=== PATIENT | female | born 1975 | race Caucasian/White ===

== ENCOUNTER 2020-11-06 12:28 | Inpatient (IN) | payer OTHER ==
[~2020-11-06] VITALS: Ht 167.6 cm; Wt 75.0 kg
[2020-11-06 12:50] LABS: BASOPHILS # (AUTO) 0.1 X10'3 (0-0.2); BASOPHILS % (AUTO) 0.8 % (0-1); EOSINOPHILS # (AUTO) 0.1 X10'3 (0-0.9); EOSINOPHILS % (AUTO) 1.1 % (0-6); HEMATOCRIT 42.6 % (35.0-45.0); HEMOGLOBIN 14.7 g/dl (12.0-16.0); LYMPHOCYTES # (AUTO) 1.2 X10'3 (1.1-4.8); LYMPHOCYTES % (AUTO) 18.2 % (21-51); MEAN CORPUSCULAR HEMOGLOBIN 28.2 PG (27.0-31.0); MEAN CORPUSCULAR HGB CONC 34.4 g/dL (33.0-36.5); MEAN CORPUSCULAR VOLUME 81.9 FL (78-98); MEAN PLATELET VOLUME 8.4 FL (7.4-10.4); MONOCYTES # (AUTO) 0.4 X10'3 (0-0.9); MONOCYTES % (AUTO) 5.7 % (2-12); NEUTROPHILS # (AUTO) 4.9 X10'3 (1.8-7.7); NEUTROPHILS % (AUTO) 74.2 % (42-75); PLATELET COUNT 226 X10'3 (140-440); RED CELL DISTRIBUTION WIDTH 13.8 % (11.5-14.5); WHITE BLOOD COUNT 6.7 X10'3 (4.5-11.0)
--- NOTE | 2020-11-06 12:56 | NUR ---
arrived to ER bed#4 for level 1 stroke alert, nihss and neuro assessment being done and already thinking possible tpa so getting box of tpa from [facility]. Addendum: 11/06/20 at 1708 by TERRIE Patient gave verbal consent for Teleneuro evaluation.
--- NOTE | 2020-11-06 13:00 | NUR ---
teleneuro in progress, stroke RN at bedside.
[2020-11-06 13:03] LABS: PARTIAL THROMBOPLASTIN TIME 25 SECONDS (22-32)
[2020-11-06 13:07] LABS: ALANINE AMINOTRANSFERASE 30 U/L (12-78); ALBUMIN 3.6 G/DL (3.4-5.0); ALBUMIN/GLOBULIN RATIO 0.9 (1.1-1.5); ALKALINE PHOSPHATASE 123 IU/L (46-116); ANION GAP 9 (8-16); ASPARTATE AMINO TRANSFERASE 15 U/L (10-37); BILIRUBIN,TOTAL 0.8 MG/DL (0.1-1.0); BLOOD UREA NITROGEN 13 MG/DL (7-18); CALCIUM 8.7 MG/DL (8.5-10.1); CHLORIDE 100 MMOL/L (99-107); CREATININE 0.62 MG/DL (0.40-0.90); GLUCOSE 385 MG/DL (70-104); POTASSIUM 3.7 MMOL/L (3.5-5.1); SODIUM 137 MMOL/L (135-145); TOTAL CARBON DIOXIDE 28.2 MMOL/L (24-32); TOTAL PROTEIN 7.5 G/DL (6.4-8.2); eGFR > 90 ML/MIN
[2020-11-06 13:09] LABS: TROPONIN I < 0.04 NG/ML (0.0-0.05)
[2020-11-06] MEDS ORDERED: alteplase 100MG inj. 100 ML IV ONE (13:10)
--- NOTE | 2020-11-06 13:10 | NUR ---
Bolus of TPA given, and ER nurse went to hang the tpa from the iv machine and the bottle slipped and broke. So we had to get new bottle of tpa mixed and hung that so there was a delay of infusion started but the bolus was given at 1310 and infusion started at 1320. Natalee WISE withnessed the waste and bous and infusion of the medicine.
[2020-11-06 14:41] LABS: CLARITY,URINE CLOUDY (Clear); COLOR,URINE YELLOW (Yellow); GLUCOSE, URINE >=1000 mg/dl (Neg); KETONES,URINE 15 mg/dl (Neg); LEUKOCYTE ESTERASE ,URINE SMALL (Neg); NITRITES, URINE NEGATIVE (Neg); OCCULT BLOOD,URINE TRACE-INTACT (Neg); PROTEIN,URINE NEGATIVE (Neg); UROBILINOGEN,URINE 0.2 E.U/dL (0.2-1.0)
[2020-11-06 14:51] LABS: UA COLLECTION TYPE VOIDED
[2020-11-06 14:52] LABS: SQUAMOUS EPITHELIAL CELL,UR MODERATE /LPF (FEW)
[2020-11-06] MEDS ORDERED: iohexol 350MG/ML 100ml bottle IV ONE (14:52)
[2020-11-06 14:53] LABS: BACTERIA,URINE 4+ /HPF (Neg); RBC,URINE 0-2 /HPF (0-2); WBC,URINE 50-100 /HPF (0-4)
[2020-11-06] MEDS ORDERED: NO HOME MEDS (15:04)
[2020-11-06] MEDS ORDERED: morphine 2 MG/ML inj. syringe IV PRN (15:30)
[2020-11-06] MEDS ORDERED: ondansetron/PF 4mg/2ml inj IV PRN (15:30)
[2020-11-06] MEDS ORDERED: acetaminophen 325mg tablet PO PRN (15:30)
[2020-11-06] MEDS ORDERED: magnesium hydroxide 30ml (MOM) UD suspension PO PRN (15:30)
[2020-11-06] MEDS ORDERED: morphine 4 MG/ML inj SYRINge IV PRN (15:30)
[2020-11-06] MEDS ORDERED: bisacodyl 10mg suppository rectal RC PRN (15:30)
[2020-11-06] MEDS: normal saline 1000ml 1,000 ML IV SCH (16:01)
--- NOTE | 2020-11-06 17:09 | NUR ---
Throughout my assessments her left facial droop has slightly improved and her tongue is not deviated, so I did another swallow eval and she passed that at 1600. I told the nurse not to feed her; but safe for swallowing water with nurse at bedside. 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 She continues to have issues focusing with her vision, she says this has been that way since the symptoms started today. Her left arm has gotten stronger and left leg stronger but she needs reinforcement to hold the arm and leg up or otherwise she will just say she can't do it. She also has justo horses frequently and has had episodes of this where she has to hold her legs to help the pain. So she is unable to wear the scd's due to justo horse pain to her lower egs.
--- NOTE | 2020-11-06 19:12 | NUR ---
PT ANXIOUS, C/O LEG CRAMPS, ANXIETY, VERBALLY COMFORTED.
--- NOTE | 2020-11-06 20:00 | NUR ---
PT SLEEPING, RR EVEN, NON-LABORED, NO CHANGE IN STROKE SYMPTOMS.
[2020-11-06] MEDS ORDERED: HYDR25TA4 PO (21:23)
[2020-11-06] MEDS ORDERED: GLYB5TAB7 PO (21:23)
[2020-11-06] MEDS ORDERED: ENAL10TA19 PO (21:23)
[2020-11-06] MEDS ORDERED: LANTUS SQ (21:25)
[2020-11-06 22:52] LABS: URINE AMPHETAMINE SCREEN POSITIVE (Neg); URINE BARBITUATE SCREEN NEGATIVE (Neg); URINE BENZODIAZEPINES SCREEN NEGATIVE (Neg); URINE CANNABINOID SCREEN NEGATIVE (Neg); URINE COCAINE SCREEN NEGATIVE (Neg); URINE METHADONE SCREEN NEGATIVE (Neg); URINE OPIATE SCREEN NEGATIVE (Neg); URINE PHENCYCLIDINE SCREEN NEGATIVE (Neg)
[2020-11-07 00:42] LABS: EOSINOPHILS # (AUTO) 0.1 X10'3 (0-0.9); MEAN CORPUSCULAR VOLUME 81.4 FL (78-98); MONOCYTES # (AUTO) 0.5 X10'3 (0-0.9)
[2020-11-07 00:44] LABS: BASOPHILS % (AUTO) 0.6 % (0-1); EOSINOPHILS % (AUTO) 1.3 % (0-6); HEMATOCRIT 42.3 % (35.0-45.0); HEMOGLOBIN 14.7 g/dl (12.0-16.0); LYMPHOCYTES # (AUTO) 1.9 X10'3 (1.1-4.8); LYMPHOCYTES % (AUTO) 23.2 % (21-51); MEAN CORPUSCULAR HEMOGLOBIN 28.3 PG (27.0-31.0); MEAN CORPUSCULAR HGB CONC 34.8 g/dL (33.0-36.5); MEAN PLATELET VOLUME 8.5 FL (7.4-10.4); MONOCYTES % (AUTO) 5.7 % (2-12); NEUTROPHILS # (AUTO) 5.7 X10'3 (1.8-7.7); NEUTROPHILS % (AUTO) 69.2 % (42-75); PLATELET COUNT 207 X10'3 (140-440); RED BLOOD COUNT 5.19 X10'6 (4.20-5.60); RED CELL DISTRIBUTION WIDTH 13.7 % (11.5-14.5); WHITE BLOOD COUNT 8.2 X10'3 (4.5-11.0)
[2020-11-07] MEDS ORDERED: diazepam inj 5 MG/ML inj. IV ONE ×2 (00:45→12:30)
[2020-11-07 00:53] LABS: ALANINE AMINOTRANSFERASE 30 U/L (12-78); ALBUMIN 3.2 G/DL (3.4-5.0); ALBUMIN/GLOBULIN RATIO 0.9 (1.1-1.5); ALKALINE PHOSPHATASE 96 IU/L (46-116); ANION GAP 9 (8-16); ASPARTATE AMINO TRANSFERASE 11 U/L (10-37); BILIRUBIN,TOTAL 0.8 MG/DL (0.1-1.0); BLOOD UREA NITROGEN 10 MG/DL (7-18); BUN/CREATININE RATIO 16.7 (6.6-38.0); CALCIUM 8.2 MG/DL (8.5-10.1); CHLORIDE 103 MMOL/L (99-107); GLUCOSE 279 MG/DL (70-104); MAGNESIUM 1.8 MG/DL (1.5-2.4); POTASSIUM 3.4 MMOL/L (3.5-5.1); SODIUM 141 MMOL/L (135-145); TOTAL PROTEIN 6.9 G/DL (6.4-8.2); eGFR > 90 ML/MIN
[2020-11-07 00:57] LABS: PARTIAL THROMBOPLASTIN TIME 21 SECONDS (22-32)
[2020-11-07] MEDS: normal saline 1000ml 1,000 ML IV SCH ×2 (05:41→20:56)
--- NOTE | 2020-11-07 10:07 | NUR ---
Dr Gould made aware of BP 168/103, BG 273, K 3.4, recommendation of speech therapy eval. No new orders at this time. Patient resting, at bedside, no signs of distress noted, patient repositioned to right side for comfort, will continue to monitor.
[2020-11-07] MEDS ORDERED: PERFLUTREN PROTEIN-A MICROSPHR (Optison) 0.22 MG/ML 3ML VIAL IV ONE (10:30)
[2020-11-07 12:49] LABS: HEMOGLOBIN A1C 9.8 % (4.5-6.2)
--- NOTE | 2020-11-07 12:50 | NUR ---
PAT TO MRI AT THIS TIME VIA [facility]. AT BEDSIDE.
[2020-11-07] MEDS ORDERED: MESSAGE TO PHARMACY PO ONE (14:30)
[2020-11-07] MEDS ORDERED: dextrose ORAL solution 15 GM/59 ML bottle PO PRN ×2 (14:30)
[2020-11-07] MEDS ORDERED: dextrose 50%-water 50ml dispensing syringe IV PRN ×2 (14:30)
[2020-11-07] MEDS ORDERED: glucagon, human recombinant 1mg kit SUBCUT PRN (14:30)
[2020-11-07] MEDS ORDERED: aspirin 81mg tab.chew PO ONE (14:40)
--- NOTE | 2020-11-07 16:03 | NUR ---
CALL TO DR BARRERA AT THIS TIME. PER MD NO ANTIBIOTIC INDICATED FOR UTI, POTASSIUM REPLACEMENT ORDERS ENTERED PER PROTOCOL.
[2020-11-07] MEDS ORDERED: potassium Cl 20 mEq SR tablet PO PRN (16:05)
[2020-11-07] MEDS ORDERED: potassium Cl 40MEQ/1/2NS 520ml 520 ML IV PRN ×2 (16:05)
[2020-11-07 16:15] VITALS: BP 160/102
--- NOTE | 2020-11-07 16:15 | NUR ---
RECEIVED REPORT FROM BILLIE JAMES IN ER. PT ARRIVED TO FLOOR AT 1615. PT IN ROOM 4022R
[2020-11-07 18:00] VITALS: BP 158/95
--- NOTE | 2020-11-07 18:40 | NUR ---
Problems reprioritized. Patient report given, questions answered & plan of care reviewed with BILLIE KINSEY.
[2020-11-07] MEDS: insulin Lispro (HumaLOG) vial - multi-dose SQ SCH ×2 (19:13→20:52)
[2020-11-07] MEDS: K and/or MAG REPLACEMENT MC SCH (20:00)
[2020-11-07] MEDS: insulin glargine (Lantus) pen - multi-dose SQ SCH (20:53)
[2020-11-07] MEDS: potassium Cl 20 mEq SR tablet PO PRN (21:06)
[2020-11-07 22:00] VITALS: BP 139/96
[2020-11-08] VITALS (7 sets, daily range): BP systolic 108–182; BP diastolic 77–101
[2020-11-08] MEDS: potassium Cl 20 mEq SR tablet PO PRN (01:31)
[2020-11-08 06:24] LABS: BASOPHILS % (AUTO) 0.6 % (0-1); EOSINOPHILS # (AUTO) 0.1 X10'3 (0-0.9); EOSINOPHILS % (AUTO) 0.7 % (0-6); HEMATOCRIT 41.5 % (35.0-45.0); HEMOGLOBIN 14.1 g/dl (12.0-16.0); LYMPHOCYTES % (AUTO) 12.4 % (21-51); MEAN CORPUSCULAR HEMOGLOBIN 27.9 PG (27.0-31.0); MEAN CORPUSCULAR HGB CONC 33.9 g/dL (33.0-36.5); MEAN CORPUSCULAR VOLUME 82.3 FL (78-98); MEAN PLATELET VOLUME 8.2 FL (7.4-10.4); MONOCYTES # (AUTO) 0.4 X10'3 (0-0.9); MONOCYTES % (AUTO) 5.5 % (2-12); NEUTROPHILS # (AUTO) 6.2 X10'3 (1.8-7.7); NEUTROPHILS % (AUTO) 80.8 % (42-75); PLATELET COUNT 198 X10'3 (140-440); RED BLOOD COUNT 5.04 X10'6 (4.20-5.60); RED CELL DISTRIBUTION WIDTH 13.7 % (11.5-14.5); WHITE BLOOD COUNT 7.7 X10'3 (4.5-11.0)
--- NOTE | 2020-11-08 06:46 | NUR ---
Patient in room ORTHO 4021. I have received report from MIAH WISE AND KINA WISE and had the opportunity to ask questions and assume patient care.
[2020-11-08 06:52] LABS: ALANINE AMINOTRANSFERASE 19 U/L (12-78); ALBUMIN 3.1 G/DL (3.4-5.0); ALBUMIN/GLOBULIN RATIO 0.9 (1.1-1.5); ALKALINE PHOSPHATASE 102 IU/L (46-116); ANION GAP 9 (8-16); ASPARTATE AMINO TRANSFERASE 11 U/L (10-37); BLOOD UREA NITROGEN 13 MG/DL (7-18); BUN/CREATININE RATIO 21.3 (6.6-38.0); CALCIUM 8.4 MG/DL (8.5-10.1); CHLORIDE 102 MMOL/L (99-107); CREATININE 0.61 MG/DL (0.40-0.90); GLUCOSE 262 MG/DL (70-104); HDL CHOLESTEROL 38 MG/DL (35-60); LDL CHOLESTEROL 96 MG/DL (50-100); MAGNESIUM 1.8 MG/DL (1.5-2.4); POTASSIUM 4.1 MMOL/L (3.5-5.1); SODIUM 139 MMOL/L (135-145); TOTAL CARBON DIOXIDE 27.8 MMOL/L (24-32); TOTAL PROTEIN 6.6 G/DL (6.4-8.2); eGFR > 90 ML/MIN
--- NOTE | 2020-11-08 06:52 | NUR ---
Patient in room ORTHO 4021. I have received report from BILLIE RODRIGUEZ and had the opportunity to ask questions and assume patient care.
[2020-11-08] MEDS: K and/or MAG REPLACEMENT MC SCH ×2 (07:07→19:11)
[2020-11-08] MEDS: normal saline 1000ml 1,000 ML IV SCH ×2 (07:07→11:49)
[2020-11-08] MEDS: aspirin 81mg tab.chew PO SCH (07:35)
[2020-11-08 07:43] LABS: CHOL/HDL RATIO 4.4 (0.00-4.99); CHOLESTEROL 169 MG/DL (0-200); TRIGLYCERIDES 143 MG/DL (20-135)
[2020-11-08] MEDS: insulin Lispro (HumaLOG) vial - multi-dose SQ SCH ×3 (09:28→19:22)
--- NOTE | 2020-11-08 11:54 | NUR ---
DM Consult: Pt admit DX R pontine stroke, L hemiparesis, double vision, and light sensitivity hx T2DM A1C 9.8 w/ no home meds listed per EMR. PT currently continues to have double vision out of one eye per RN w/ noted L arm weakness. Advanced to MM5/heart healthy diet per PANEL BEATER recs; MARTA d/w RN regarding carb controlled diet this admit given DM hx. Pt would benefit from written/verbal DM ed once more appropriate this admit. Addendum: 11/08/20 at [address] Amended: Links added.
--- NOTE | 2020-11-08 13:27 | NUR ---
Dr Miranda notified of LDL and order received for Atorvastin 40mg po daily.
[2020-11-08] MEDS ORDERED: magnesium hydroxide 30ml (MOM) UD suspension PO ONE (16:05)
--- NOTE | 2020-11-08 18:38 | NUR ---
Problems reprioritized. Patient report given, questions answered & plan of care reviewed with duke eid.
--- NOTE | 2020-11-08 18:45 | NUR ---
Patient in room ORTHO 4021. I have received report from Meri WISE and had the opportunity to ask questions and assume patient care.
[2020-11-08] MEDS: docusate sod 100mg capsule PO SCH (19:11)
[2020-11-08] MEDS: insulin glargine (Lantus) pen - multi-dose SQ SCH (21:35)
[2020-11-09 06:00] VITALS: BP 167/99
[2020-11-09 06:14] LABS: BASOPHILS % (AUTO) 0.7 % (0-1); EOSINOPHILS # (AUTO) 0.1 X10'3 (0-0.9); EOSINOPHILS % (AUTO) 1.2 % (0-6); HEMATOCRIT 39.5 % (35.0-45.0); HEMOGLOBIN 13.7 g/dl (12.0-16.0); LYMPHOCYTES # (AUTO) 1.3 X10'3 (1.1-4.8); LYMPHOCYTES % (AUTO) 19.8 % (21-51); MEAN CORPUSCULAR HEMOGLOBIN 28.3 PG (27.0-31.0); MEAN CORPUSCULAR HGB CONC 34.6 g/dL (33.0-36.5); MEAN PLATELET VOLUME 8.2 FL (7.4-10.4); MONOCYTES # (AUTO) 0.5 X10'3 (0-0.9); MONOCYTES % (AUTO) 7.5 % (2-12); NEUTROPHILS # (AUTO) 4.7 X10'3 (1.8-7.7); NEUTROPHILS % (AUTO) 70.8 % (42-75); PLATELET COUNT 190 X10'3 (140-440); RED BLOOD COUNT 4.82 X10'6 (4.20-5.60); RED CELL DISTRIBUTION WIDTH 13.5 % (11.5-14.5); WHITE BLOOD COUNT 6.6 X10'3 (4.5-11.0)
--- NOTE | 2020-11-09 06:28 | NUR ---
Problems reprioritized. Patient report given, questions answered & plan of care reviewed with Meri WISE.
[2020-11-09 06:32] LABS: ALANINE AMINOTRANSFERASE 21 U/L (12-78); ALBUMIN 2.8 G/DL (3.4-5.0); ALBUMIN/GLOBULIN RATIO 0.8 (1.1-1.5); ALKALINE PHOSPHATASE 92 IU/L (46-116); ANION GAP 7 (8-16); ASPARTATE AMINO TRANSFERASE 12 U/L (10-37); BILIRUBIN,TOTAL 0.9 MG/DL (0.1-1.0); BLOOD UREA NITROGEN 13 MG/DL (7-18); BUN/CREATININE RATIO 22.8 (6.6-38.0); CALCIUM 8.2 MG/DL (8.5-10.1); CHLORIDE 104 MMOL/L (99-107); CREATININE 0.57 MG/DL (0.40-0.90); GLUCOSE 246 MG/DL (70-104); MAGNESIUM 1.9 MG/DL (1.5-2.4); POTASSIUM 4.1 MMOL/L (3.5-5.1); SODIUM 138 MMOL/L (135-145); TOTAL CARBON DIOXIDE 27.2 MMOL/L (24-32); TOTAL PROTEIN 6.2 G/DL (6.4-8.2); eGFR > 90 ML/MIN
--- NOTE | 2020-11-09 06:32 | NUR ---
Patient in room ORTHO 4021. I have received report from duke eid and had the opportunity to ask questions and assume patient care.
[2020-11-09] MEDS: atorvastatin 20mg tablet PO SCH (07:03)
[2020-11-09] MEDS: docusate sod 100mg capsule PO SCH ×2 (07:03→20:00)
[2020-11-09] MEDS: K and/or MAG REPLACEMENT MC SCH ×2 (08:00→19:35)
[2020-11-09] MEDS ORDERED: atorvastatin 20mg tablet PO SCH (08:00)
[2020-11-09] MEDS: aspirin 81mg tab.chew PO SCH (08:07)
[2020-11-09] MEDS: insulin Lispro (HumaLOG) vial - multi-dose SQ SCH ×3 (09:06→19:09)
[2020-11-09 10:00] VITALS: BP 155/91
[2020-11-09] MEDS: normal saline 1000ml 1,000 ML IV SCH ×2 (10:10→23:30)
--- NOTE | 2020-11-09 14:11 | NUR ---
F/u 11/09: Pt seen by RD for written/verbal DM ed w/ RD contact information provided. Pt reports checks Glu routinely but when asked for results shares "high". Pt also reports not eating routinely skipping meals frequently recently. RD encouraged routine meal frequency each day to optimize Glu trends daily. RD encouraged pt to contact dietitian's office if further questions/concerns. Addendum: 11/09/20 at [address] Amended: Links added.
[2020-11-09 18:00] VITALS: BP 141/93
--- NOTE | 2020-11-09 18:39 | NUR ---
Problems reprioritized. Patient report given, questions answered & plan of care reviewed with Ronda WISE.
[2020-11-09] MEDS: insulin glargine (Lantus) pen - multi-dose SQ SCH (21:17)
[2020-11-09 22:00] VITALS: BP 143/92
[2020-11-09] MEDS: acetaminophen 325mg tablet PO PRN (22:03)
[2020-11-10 06:00] VITALS: BP 160/90
--- NOTE | 2020-11-10 06:24 | NUR ---
Problems reprioritized. Patient report given, questions answered & plan of care reviewed with BILLIE Jerez.
[2020-11-10 06:48] LABS: BASOPHILS % (AUTO) 0.5 % (0-1); EOSINOPHILS # (AUTO) 0.1 X10'3 (0-0.9); EOSINOPHILS % (AUTO) 1.6 % (0-6); HEMATOCRIT 36.9 % (35.0-45.0); HEMOGLOBIN 12.8 g/dl (12.0-16.0); LYMPHOCYTES # (AUTO) 1.5 X10'3 (1.1-4.8); LYMPHOCYTES % (AUTO) 19.5 % (21-51); MEAN CORPUSCULAR HEMOGLOBIN 28.2 PG (27.0-31.0); MEAN CORPUSCULAR HGB CONC 34.6 g/dL (33.0-36.5); MEAN CORPUSCULAR VOLUME 81.3 FL (78-98); MEAN PLATELET VOLUME 8.3 FL (7.4-10.4); MONOCYTES # (AUTO) 0.5 X10'3 (0-0.9); MONOCYTES % (AUTO) 6.4 % (2-12); NEUTROPHILS # (AUTO) 5.5 X10'3 (1.8-7.7); PLATELET COUNT 191 X10'3 (140-440); RED BLOOD COUNT 4.54 X10'6 (4.20-5.60); RED CELL DISTRIBUTION WIDTH 13.5 % (11.5-14.5); WHITE BLOOD COUNT 7.7 X10'3 (4.5-11.0)
[2020-11-10 07:05] LABS: ALANINE AMINOTRANSFERASE 20 U/L (12-78); ALBUMIN 2.7 G/DL (3.4-5.0); ALBUMIN/GLOBULIN RATIO 0.8 (1.1-1.5); ALKALINE PHOSPHATASE 105 IU/L (46-116); ANION GAP 4 (8-16); ASPARTATE AMINO TRANSFERASE 13 U/L (10-37); BILIRUBIN,TOTAL 0.5 MG/DL (0.1-1.0); BLOOD UREA NITROGEN 18 MG/DL (7-18); BUN/CREATININE RATIO 30.5 (6.6-38.0); CALCIUM 8.2 MG/DL (8.5-10.1); CHLORIDE 106 MMOL/L (99-107); CREATININE 0.59 MG/DL (0.40-0.90); GLUCOSE 255 MG/DL (70-104); MAGNESIUM 2.1 MG/DL (1.5-2.4); POTASSIUM 3.7 MMOL/L (3.5-5.1); SODIUM 140 MMOL/L (135-145); TOTAL CARBON DIOXIDE 29.9 MMOL/L (24-32); TOTAL PROTEIN 6.1 G/DL (6.4-8.2); eGFR > 90 ML/MIN
[2020-11-10] MEDS: docusate sod 100mg capsule PO SCH ×2 (07:31→20:00)
[2020-11-10] MEDS: K and/or MAG REPLACEMENT MC SCH ×2 (07:31→20:00)
[2020-11-10] MEDS: aspirin 81mg tab.chew PO SCH (07:31)
[2020-11-10] MEDS: atorvastatin 20mg tablet PO SCH (07:31)
[2020-11-10] MEDS: insulin Lispro (HumaLOG) vial - multi-dose SQ SCH ×4 (09:16→21:48)
[2020-11-10 10:00] VITALS: BP 130/78
--- NOTE | 2020-11-10 12:04 | NUR ---
Initial: Pt admit for acute CVA. Pt s/p f/u BSS 11/[address] recs texture upgrade to SB6 with thin liquids. Pt documented with 100% PO intake throughout LOS. Notified by dietary that pt receiving double protein TID as of 11/09. LBM 11/09 with routine bowel care available though pt documented to be refusing. No further nutrition intervention implemented at this time. Will continue to follow. Recommendations: 1) Continue SB6 CHO controlled diet with thin liquids per ST recs 2) Double eggs WB, double meat BIDLD for satiety 3) Routine bowel care 4) Scaled weight this admit; weekly scaled weights thereafter Addendum: 11/10/20 at [address] Amended: Links added.
[2020-11-10] MEDS: normal saline 1000ml 1,000 ML IV SCH (16:56)
[2020-11-10 17:34] LABS: CLARITY,URINE CLOUDY (Clear); COLOR,URINE YELLOW (Yellow); GLUCOSE, URINE 250 mg/dl (Neg); KETONES,URINE NEGATIVE (Neg); LEUKOCYTE ESTERASE ,URINE LARGE (Neg); NITRITES, URINE NEGATIVE (Neg); OCCULT BLOOD,URINE SMALL (Neg); PROTEIN,URINE NEGATIVE (Neg); UROBILINOGEN,URINE 0.2 E.U/dL (0.2-1.0)
[2020-11-10 17:40] LABS: UA COLLECTION TYPE NON-SPECIFIED
[2020-11-10 17:41] LABS: BACTERIA,URINE 4+ /HPF (Neg); MUCUS STRANDS NONE SEEN /LPF (Neg); RBC,URINE 0-2 /HPF (0-2); SQUAMOUS EPITHELIAL CELL,UR FEW /LPF (FEW); WBC,URINE 50-100 /HPF (0-4)
--- NOTE | 2020-11-10 17:49 | NUR ---
PAGER ID: [phone] MESSAGE: MICHAEL WISE [phone] RE: SARATH LOW [id number]. PTS U/A RESULTS ARE IN. THANK YOU
--- NOTE | 2020-11-10 18:31 | NUR ---
Problems reprioritized. Patient report given, questions answered & plan of care reviewed with KRYSTAL WISE.
[2020-11-10] MEDS: insulin glargine (Lantus) pen - multi-dose SQ SCH (21:44)
[2020-11-10] MEDS: nystatin 15 GM powder TP SCH (21:46)
[2020-11-10 22:00] VITALS: BP 150/86
[2020-11-11] MEDS: acetaminophen 325mg tablet PO PRN (02:45)
--- NOTE | 2020-11-11 04:27 | NUR ---
reviewed and edited assessment per my observations
[2020-11-11] MEDS: normal saline 1000ml 1,000 ML IV SCH ×2 (05:18→15:30)
[2020-11-11 05:54] LABS: BASOPHILS % (AUTO) 0.7 % (0-1); EOSINOPHILS # (AUTO) 0.1 X10'3 (0-0.9); EOSINOPHILS % (AUTO) 1.9 % (0-6); HEMATOCRIT 37.8 % (35.0-45.0); HEMOGLOBIN 12.6 g/dl (12.0-16.0); LYMPHOCYTES # (AUTO) 1.5 X10'3 (1.1-4.8); LYMPHOCYTES % (AUTO) 26.6 % (21-51); MEAN CORPUSCULAR HEMOGLOBIN 27.7 PG (27.0-31.0); MEAN CORPUSCULAR HGB CONC 33.4 g/dL (33.0-36.5); MEAN CORPUSCULAR VOLUME 83.1 FL (78-98); MEAN PLATELET VOLUME 8.2 FL (7.4-10.4); MONOCYTES # (AUTO) 0.3 X10'3 (0-0.9); MONOCYTES % (AUTO) 5.8 % (2-12); NEUTROPHILS # (AUTO) 3.7 X10'3 (1.8-7.7); PLATELET COUNT 205 X10'3 (140-440); RED BLOOD COUNT 4.55 X10'6 (4.20-5.60); RED CELL DISTRIBUTION WIDTH 13.9 % (11.5-14.5); WHITE BLOOD COUNT 5.7 X10'3 (4.5-11.0)
[2020-11-11 06:15] LABS: ALANINE AMINOTRANSFERASE 24 U/L (12-78); ALBUMIN 2.6 G/DL (3.4-5.0); ALBUMIN/GLOBULIN RATIO 0.8 (1.1-1.5); ALKALINE PHOSPHATASE 101 IU/L (46-116); ANION GAP 6 (8-16); ASPARTATE AMINO TRANSFERASE 16 U/L (10-37); BILIRUBIN,TOTAL 0.4 MG/DL (0.1-1.0); BLOOD UREA NITROGEN 21 MG/DL (7-18); BUN/CREATININE RATIO 38.9 (6.6-38.0); CALCIUM 8.1 MG/DL (8.5-10.1); CHLORIDE 108 MMOL/L (99-107); CREATININE 0.54 MG/DL (0.40-0.90); GLUCOSE 211 MG/DL (70-104); MAGNESIUM 1.9 MG/DL (1.5-2.4); POTASSIUM 4.1 MMOL/L (3.5-5.1); SODIUM 141 MMOL/L (135-145); TOTAL CARBON DIOXIDE 26.7 MMOL/L (24-32); TOTAL PROTEIN 5.9 G/DL (6.4-8.2); eGFR > 90 ML/MIN
[2020-11-11 06:30] VITALS: BP 153/96
[2020-11-11] MEDS: nystatin 15 GM powder TP SCH ×3 (08:00→21:00)
[2020-11-11] MEDS: docusate sod 100mg capsule PO SCH ×2 (08:00→20:00)
[2020-11-11] MEDS: K and/or MAG REPLACEMENT MC SCH ×2 (08:00→20:00)
[2020-11-11] MEDS: aspirin 81mg tab.chew PO SCH (09:09)
[2020-11-11] MEDS: atorvastatin 20mg tablet PO SCH (09:09)
[2020-11-11] MEDS: HYDROchlorothiazide 25mg tablet PO SCH (09:09)
[2020-11-11] MEDS: insulin Lispro (HumaLOG) vial - multi-dose SQ SCH ×4 (09:20→21:58)
[2020-11-11 10:00] VITALS: BP 134/82
[2020-11-11] MEDS: fluconazole 100mg tablet PO SCH (12:24)
[2020-11-11] MEDS: ciprofloxacin 250mg tablet PO SCH ×2 (12:24→22:04)
--- NOTE | 2020-11-11 13:42 | NUR ---
Nutrition Consult 11/11: Communicated w/ pt at bedside. Pt voiced food preferences; disliked some of the carbohydrate choices, RD provided pt w/ menu and alternative food write in list for [facility] diet. Will continue to monitor. Addendum: 11/11/20 at [address] Amended: Links added.
[2020-11-11] MEDS: HYDROcodone/acetaminophen 5mg/325mg tablet PO PRN (14:18)
[2020-11-11 18:00] VITALS: BP 144/80
--- NOTE | 2020-11-11 19:50 | NUR ---
Upon arriving on shift, spent about 45 with patient and her daughter listening to complaints about dayshift staff being abrupt and ignoring her needs. patient is very emotional and daughter willing to assist, since staffing is so busy. helped patient back into bed using stedy. provided daughter with shower cap and soapy water for bedbath. explained that if they would like to report problems, to speak to director of unit on .
[2020-11-11 22:00] VITALS: BP 139/95
[2020-11-11] MEDS: insulin glargine (Lantus) pen - multi-dose SQ SCH (22:00)
[2020-11-12] MEDS: acetaminophen 325mg tablet PO PRN (00:02)
[2020-11-12 02:00] VITALS: BP 152/89
[2020-11-12] MEDS: normal saline 1000ml 1,000 ML IV SCH (04:50)
--- NOTE | 2020-11-12 04:57 | NUR ---
reviewed and edited assessment.
[2020-11-12 06:09] LABS: BASOPHILS # (AUTO) 0.1 X10'3 (0-0.2); BASOPHILS % (AUTO) 0.9 % (0-1); EOSINOPHILS # (AUTO) 0.1 X10'3 (0-0.9); EOSINOPHILS % (AUTO) 2.3 % (0-6); HEMOGLOBIN 13.8 g/dl (12.0-16.0); LYMPHOCYTES % (AUTO) 31.5 % (21-51); MEAN CORPUSCULAR HGB CONC 33.6 g/dL (33.0-36.5); MEAN CORPUSCULAR VOLUME 83.2 FL (78-98); MEAN PLATELET VOLUME 8.5 FL (7.4-10.4); MONOCYTES # (AUTO) 0.4 X10'3 (0-0.9); MONOCYTES % (AUTO) 5.7 % (2-12); NEUTROPHILS # (AUTO) 3.7 X10'3 (1.8-7.7); NEUTROPHILS % (AUTO) 59.6 % (42-75); PLATELET COUNT 244 X10'3 (140-440); RED BLOOD COUNT 4.93 X10'6 (4.20-5.60); RED CELL DISTRIBUTION WIDTH 13.6 % (11.5-14.5); WHITE BLOOD COUNT 6.3 X10'3 (4.5-11.0)
[2020-11-12 06:21] LABS: ALANINE AMINOTRANSFERASE 24 U/L (12-78); ALBUMIN 3.1 G/DL (3.4-5.0); ALBUMIN/GLOBULIN RATIO 0.9 (1.1-1.5); ALKALINE PHOSPHATASE 113 IU/L (46-116); ANION GAP 4 (8-16); ASPARTATE AMINO TRANSFERASE 16 U/L (10-37); BILIRUBIN,TOTAL 0.3 MG/DL (0.1-1.0); BLOOD UREA NITROGEN 25 MG/DL (7-18); BUN/CREATININE RATIO 40.3 (6.6-38.0); CALCIUM 8.8 MG/DL (8.5-10.1); CHLORIDE 105 MMOL/L (99-107); CREATININE 0.62 MG/DL (0.40-0.90); GLUCOSE 219 MG/DL (70-104); POTASSIUM 4.1 MMOL/L (3.5-5.1); SODIUM 141 MMOL/L (135-145); TOTAL CARBON DIOXIDE 31.8 MMOL/L (24-32); TOTAL PROTEIN 6.6 G/DL (6.4-8.2); eGFR > 90 ML/MIN
--- NOTE | 2020-11-12 06:21 | NUR ---
Patient in room ORTHO 4021. I have received report from nando eid and had the opportunity to ask questions and assume patient care.
[2020-11-12 06:28] VITALS: BP 152/93
[2020-11-12] MEDS: nystatin 15 GM powder TP SCH ×3 (08:00→20:44)
[2020-11-12] MEDS: docusate sod 100mg capsule PO SCH ×2 (08:00→20:00)
[2020-11-12] MEDS: K and/or MAG REPLACEMENT MC SCH ×2 (08:00→20:00)
[2020-11-12] MEDS: aspirin 81mg tab.chew PO SCH (08:55)
[2020-11-12] MEDS: atorvastatin 20mg tablet PO SCH (08:55)
[2020-11-12] MEDS: ciprofloxacin 250mg tablet PO SCH ×2 (08:56→22:33)
[2020-11-12] MEDS: HYDROchlorothiazide 25mg tablet PO SCH (08:56)
[2020-11-12] MEDS: fluconazole 100mg tablet PO SCH (08:57)
[2020-11-12 10:00] VITALS: BP 141/90
[2020-11-12] MEDS: insulin Lispro (HumaLOG) vial - multi-dose SQ SCH ×2 (10:06→20:41)
[2020-11-12] MEDS: HYDROcodone/acetaminophen 5mg/325mg tablet PO PRN (12:19)
--- NOTE | 2020-11-12 13:23 | NUR ---
Nutrition Consult 11/12: Consult already addressed, see pervious RD note. Addendum: 11/12/20 at [address] Amended: Links added.
[2020-11-12 18:00] VITALS: BP 131/80
--- NOTE | 2020-11-12 18:16 | NUR ---
Problems reprioritized. Patient report given, questions answered & plan of care reviewed with haris eid.
[2020-11-12] MEDS: lactobacillus rhamnosus 10,000 MMU CELLS/CAPSULE PO SCH (20:41)
--- NOTE | 2020-11-12 20:45 | NUR ---
PATIENT REFUSED NYSTOP POWDER-DOES NOT EVEN KNOW WHAT IT IS FOR. ALSO, OPENED COLACE, BUT PT REFUSED MED SO HAD TO THROW AWAY INSTEAD OF RETURN.
[2020-11-12] MEDS ORDERED: Melatonin 3mg tablet PO SCH ×2 (21:20→23:40)
[2020-11-12] MEDS: insulin glargine (Lantus) pen - multi-dose SQ SCH (22:32)
[2020-11-13 01:00] VITALS: BP 142/90
[2020-11-13] MEDS: acetaminophen 325mg tablet PO PRN (02:05)
--- NOTE | 2020-11-13 06:25 | NUR ---
Patient in room ORTHO 4021. I have received report from Mitchell WISE and had the opportunity to ask questions and assume patient care.
[2020-11-13 07:17] LABS: BASOPHILS # (AUTO) 0.1 X10'3 (0-0.2); BASOPHILS % (AUTO) 0.9 % (0-1); EOSINOPHILS # (AUTO) 0.1 X10'3 (0-0.9); EOSINOPHILS % (AUTO) 1.8 % (0-6); HEMATOCRIT 39.5 % (35.0-45.0); HEMOGLOBIN 13.5 g/dl (12.0-16.0); LYMPHOCYTES # (AUTO) 1.8 X10'3 (1.1-4.8); LYMPHOCYTES % (AUTO) 23.7 % (21-51); MEAN CORPUSCULAR HEMOGLOBIN 28.2 PG (27.0-31.0); MEAN CORPUSCULAR HGB CONC 34.2 g/dL (33.0-36.5); MEAN CORPUSCULAR VOLUME 82.7 FL (78-98); MEAN PLATELET VOLUME 8.4 FL (7.4-10.4); MONOCYTES # (AUTO) 0.4 X10'3 (0-0.9); MONOCYTES % (AUTO) 5.9 % (2-12); NEUTROPHILS % (AUTO) 67.7 % (42-75); PLATELET COUNT 246 X10'3 (140-440); RED BLOOD COUNT 4.78 X10'6 (4.20-5.60); RED CELL DISTRIBUTION WIDTH 13.9 % (11.5-14.5); WHITE BLOOD COUNT 7.5 X10'3 (4.5-11.0)
[2020-11-13 07:34] LABS: ALANINE AMINOTRANSFERASE 30 U/L (12-78); ALBUMIN 3.2 G/DL (3.4-5.0); ALBUMIN/GLOBULIN RATIO 0.9 (1.1-1.5); ALKALINE PHOSPHATASE 111 IU/L (46-116); ANION GAP 7 (8-16); ASPARTATE AMINO TRANSFERASE 18 U/L (10-37); BILIRUBIN,TOTAL 0.4 MG/DL (0.1-1.0); BLOOD UREA NITROGEN 31 MG/DL (7-18); BUN/CREATININE RATIO 44.3 (6.6-38.0); CALCIUM 8.8 MG/DL (8.5-10.1); CHLORIDE 104 MMOL/L (99-107); GLUCOSE 244 MG/DL (70-104); MAGNESIUM 1.8 MG/DL (1.5-2.4); SODIUM 138 MMOL/L (135-145); TOTAL CARBON DIOXIDE 27.3 MMOL/L (24-32); TOTAL PROTEIN 6.8 G/DL (6.4-8.2); eGFR 90 ML/MIN
[2020-11-13] MEDS: K and/or MAG REPLACEMENT MC SCH ×2 (08:00→20:00)
[2020-11-13] MEDS: nystatin 15 GM powder TP SCH ×3 (08:00→20:48)
[2020-11-13] MEDS: HYDROchlorothiazide 25mg tablet PO SCH (08:12)
[2020-11-13] MEDS: aspirin 81mg tab.chew PO SCH (08:12)
[2020-11-13] MEDS: fluconazole 100mg tablet PO SCH (08:12)
[2020-11-13] MEDS: docusate sod 100mg capsule PO SCH ×2 (08:12→20:00)
[2020-11-13] MEDS: atorvastatin 20mg tablet PO SCH (08:12)
[2020-11-13] MEDS: lactobacillus rhamnosus 10,000 MMU CELLS/CAPSULE PO SCH ×2 (08:13→20:00)
[2020-11-13 10:00] VITALS: BP 148/90
[2020-11-13] MEDS: ciprofloxacin 250mg tablet PO SCH ×2 (10:18→21:23)
--- NOTE | 2020-11-13 10:43 | NUR ---
PAGER ID: [phone] MESSAGE: Ortho/Neuro Chantell WISE ext [phone]. RE: Alicia Melo. Patient stated feeling depressed, asking for antidepressant medication
[2020-11-13] MEDS: FLUoxetine 20mg capsule PO SCH (11:06)
[2020-11-13] MEDS: insulin Lispro (HumaLOG) vial - multi-dose SQ SCH ×2 (12:37→21:15)
[2020-11-13 18:00] VITALS: BP 163/101
--- NOTE | 2020-11-13 18:46 | NUR ---
Patient in room MICHAELA 345. I have received report from BILLIE Abdul and had the opportunity to ask questions and assume patient care.
[2020-11-13] MEDS ORDERED: Melatonin 3mg tablet PO SCH (21:00)
[2020-11-13] MEDS: insulin glargine (Lantus) pen - multi-dose SQ SCH (21:16)
[2020-11-13] MEDS ORDERED: levoFLOXACIN 500mg tablet PO ONE (21:25)
[2020-11-14] VITALS: BP 144/100
--- NOTE | 2020-11-14 00:36 | NUR ---
Patient's antibiotic changed right after it was given from Cipro to Levaquin. Checked the eMAR and saw that new med Levaquin had been added. Went to give medication to patient and found out she had just eaten dairy and the med is supposed to be held for 4 hours after dairy is eaten. Called pharmacy and was told that we should probably just wait until the next scheduled dose since both antibiotics are Fluoroquinolones and due to the dairy, but to check with the Dr first. Paged Dr. Noble.
[2020-11-14] MEDS: HYDROcodone/acetaminophen 5mg/325mg tablet PO PRN ×3 (03:44→22:30)
[2020-11-14 06:07] LABS: BASOPHILS # (AUTO) 0.1 X10'3 (0-0.2); BASOPHILS % (AUTO) 0.8 % (0-1); EOSINOPHILS # (AUTO) 0.1 X10'3 (0-0.9); EOSINOPHILS % (AUTO) 1.4 % (0-6); HEMATOCRIT 41.6 % (35.0-45.0); LYMPHOCYTES # (AUTO) 1.8 X10'3 (1.1-4.8); LYMPHOCYTES % (AUTO) 24.2 % (21-51); MEAN CORPUSCULAR HEMOGLOBIN 28.2 PG (27.0-31.0); MEAN CORPUSCULAR HGB CONC 33.6 g/dL (33.0-36.5); MEAN PLATELET VOLUME 8.6 FL (7.4-10.4); MONOCYTES # (AUTO) 0.5 X10'3 (0-0.9); MONOCYTES % (AUTO) 6.7 % (2-12); NEUTROPHILS # (AUTO) 4.9 X10'3 (1.8-7.7); NEUTROPHILS % (AUTO) 66.9 % (42-75); PLATELET COUNT 272 X10'3 (140-440); RED BLOOD COUNT 4.95 X10'6 (4.20-5.60); WHITE BLOOD COUNT 7.3 X10'3 (4.5-11.0)
[2020-11-14 06:27] LABS: ALANINE AMINOTRANSFERASE 37 U/L (12-78); ALBUMIN 3.5 G/DL (3.4-5.0); ALBUMIN/GLOBULIN RATIO 0.9 (1.1-1.5); ALKALINE PHOSPHATASE 132 IU/L (46-116); ANION GAP 8 (8-16); ASPARTATE AMINO TRANSFERASE 19 U/L (10-37); BILIRUBIN,TOTAL 0.4 MG/DL (0.1-1.0); BLOOD UREA NITROGEN 29 MG/DL (7-18); CALCIUM 8.7 MG/DL (8.5-10.1); CHLORIDE 101 MMOL/L (99-107); CREATININE 0.63 MG/DL (0.40-0.90); GLUCOSE 327 MG/DL (70-104); POTASSIUM 3.9 MMOL/L (3.5-5.1); SODIUM 140 MMOL/L (135-145); TOTAL CARBON DIOXIDE 31.1 MMOL/L (24-32); TOTAL PROTEIN 7.2 G/DL (6.4-8.2); eGFR > 90 ML/MIN
--- NOTE | 2020-11-14 06:30 | NUR ---
Problems reprioritized. Patient report given, questions answered & plan of care reviewed with BILLIE Dang.
--- NOTE | 2020-11-14 06:30 | NUR ---
Patient in room MICHAELA 345. I have received report from BILLIE Stanley and had the opportunity to ask questions and assume patient care.
[2020-11-14 07:00] VITALS: BP 155/91
[2020-11-14] MEDS: nystatin 15 GM powder TP SCH ×2 (08:00→12:41)
[2020-11-14] MEDS: docusate sod 100mg capsule PO SCH ×2 (08:00→20:00)
[2020-11-14] MEDS: K and/or MAG REPLACEMENT MC SCH ×2 (08:00→20:37)
[2020-11-14] MEDS: insulin Lispro (HumaLOG) vial - multi-dose SQ SCH ×4 (08:45→22:21)
[2020-11-14] MEDS: FLUoxetine 20mg capsule PO SCH (08:47)
[2020-11-14] MEDS: atorvastatin 20mg tablet PO SCH (08:47)
[2020-11-14] MEDS: aspirin 81mg tab.chew PO SCH (08:47)
[2020-11-14] MEDS: lactobacillus rhamnosus 10,000 MMU CELLS/CAPSULE PO SCH ×2 (08:47→20:00)
[2020-11-14] MEDS: HYDROchlorothiazide 25mg tablet PO SCH (08:47)
[2020-11-14] MEDS: fluconazole 100mg tablet PO SCH (08:48)
[2020-11-14 11:00] VITALS: BP 127/87
[2020-11-14] MEDS: levoFLOXACIN 500mg tablet PO SCH (11:10)
--- NOTE | 2020-11-14 12:58 | NUR ---
PAGER ID: [phone] MESSAGE: Laurence Case [phone] re Melo [phone] please call regarding pt receiving 2nd shot of Pfizer Covid vaccine, thank you Addendum: 11/14/20 at 1301 by Laurence Yung RN orders received to administer 2nd dose of vaccine
[2020-11-14 18:00] VITALS: BP 142/85
--- NOTE | 2020-11-14 18:40 | NUR ---
Patient in room MICHAELA 345. I have received report from BILLIE Dang and had the opportunity to ask questions and assume patient care.
--- NOTE | 2020-11-14 18:42 | NUR ---
Problems reprioritized. Patient report given, questions answered & plan of care reviewed with BILLIE Menon.
[2020-11-14 19:00] VITALS: BP 137/86
[2020-11-14] MEDS: insulin glargine (Lantus) pen - multi-dose SQ SCH (22:19)
--- NOTE | 2020-11-14 23:12 | NUR ---
Student documentation: I have reviewed and agree with all interventions, assessments performed and documented by Junior White [facility].
--- NOTE | 2020-11-14 23:13 | NUR ---
Student Medication Administration: For this medication-pass time frame, all medication were reviewed, dispensed, administered and documented per hospital policy by Mark White [facility]. All double check done..
[2020-11-15] VITALS: BP 144/89
[2020-11-15 06:17] LABS: BASOPHILS # (AUTO) 0.1 X10'3 (0-0.2); EOSINOPHILS # (AUTO) 0.1 X10'3 (0-0.9); EOSINOPHILS % (AUTO) 1.9 % (0-6); HEMATOCRIT 40.7 % (35.0-45.0); HEMOGLOBIN 13.8 g/dl (12.0-16.0); LYMPHOCYTES % (AUTO) 30.2 % (21-51); MEAN CORPUSCULAR HEMOGLOBIN 28.4 PG (27.0-31.0); MEAN CORPUSCULAR VOLUME 83.6 FL (78-98); MEAN PLATELET VOLUME 8.8 FL (7.4-10.4); MONOCYTES # (AUTO) 0.5 X10'3 (0-0.9); MONOCYTES % (AUTO) 6.9 % (2-12); PLATELET COUNT 256 X10'3 (140-440); RED BLOOD COUNT 4.87 X10'6 (4.20-5.60); RED CELL DISTRIBUTION WIDTH 14.1 % (11.5-14.5); WHITE BLOOD COUNT 6.6 X10'3 (4.5-11.0)
--- NOTE | 2020-11-15 06:26 | NUR ---
Patient in room MICHAELA 345. I have received report from BILLIE Menon and had the opportunity to ask questions and assume patient care.
[2020-11-15 06:36] LABS: ALANINE AMINOTRANSFERASE 33 U/L (12-78); ALBUMIN 3.3 G/DL (3.4-5.0); ALKALINE PHOSPHATASE 134 IU/L (46-116); ANION GAP 5 (8-16); ASPARTATE AMINO TRANSFERASE 17 U/L (10-37); BILIRUBIN,TOTAL 0.3 MG/DL (0.1-1.0); BLOOD UREA NITROGEN 25 MG/DL (7-18); BUN/CREATININE RATIO 37.9 (6.6-38.0); CALCIUM 8.8 MG/DL (8.5-10.1); CHLORIDE 103 MMOL/L (99-107); CREATININE 0.66 MG/DL (0.40-0.90); GLUCOSE 290 MG/DL (70-104); MAGNESIUM 2.1 MG/DL (1.5-2.4); POTASSIUM 4.2 MMOL/L (3.5-5.1); SODIUM 142 MMOL/L (135-145); TOTAL CARBON DIOXIDE 33.9 MMOL/L (24-32); TOTAL PROTEIN 6.7 G/DL (6.4-8.2); eGFR > 90 ML/MIN
--- NOTE | 2020-11-15 06:39 | NUR ---
Problems reprioritized. Patient report given, questions answered & plan of care reviewed with BILLIE Dang.
[2020-11-15 07:00] VITALS: BP 170/93
[2020-11-15] MEDS: docusate sod 100mg capsule PO SCH ×3 (08:00→19:16)
[2020-11-15] MEDS: K and/or MAG REPLACEMENT MC SCH ×2 (08:00→19:17)
[2020-11-15] MEDS: insulin Lispro (HumaLOG) vial - multi-dose SQ SCH ×5 (08:48→22:52)
[2020-11-15] MEDS: lactobacillus rhamnosus 10,000 MMU CELLS/CAPSULE PO SCH ×2 (08:50→19:02)
[2020-11-15] MEDS: HYDROchlorothiazide 25mg tablet PO SCH (08:50)
[2020-11-15] MEDS: aspirin 81mg tab.chew PO SCH (08:50)
[2020-11-15] MEDS: fluconazole 100mg tablet PO SCH (08:50)
[2020-11-15] MEDS: atorvastatin 20mg tablet PO SCH (08:50)
[2020-11-15] MEDS: FLUoxetine 20mg capsule PO SCH (08:50)
[2020-11-15] MEDS ORDERED: COVID-19 VACC, MRNA(PFIZER)/PF--BNT162b2 syringe IMVAC ONE (10:30)
[2020-11-15 12:10] VITALS: BP 142/90
[2020-11-15] MEDS: levoFLOXACIN 500mg tablet PO SCH (13:17)
[2020-11-15] MEDS: acetaminophen 325mg tablet PO PRN (17:13)
[2020-11-15 18:00] VITALS: BP 150/90
--- NOTE | 2020-11-15 18:25 | NUR ---
Patient in room MICHAELA 345. I have received report from BILLIE Dang and had the opportunity to ask questions and assume patient care.
--- NOTE | 2020-11-15 18:28 | NUR ---
Problems reprioritized. Patient report given, questions answered & plan of care reviewed with BILLIE Menon.
[2020-11-15] MEDS: insulin glargine (Lantus) pen - multi-dose SQ SCH (22:51)
[2020-11-16] VITALS: BP 140/80
[2020-11-16] MEDS: HYDROcodone/acetaminophen 5mg/325mg tablet PO PRN ×4 (00:24→23:03)
[2020-11-16 05:58] LABS: BASOPHILS # (AUTO) 0.1 X10'3 (0-0.2); BASOPHILS % (AUTO) 0.7 % (0-1); EOSINOPHILS # (AUTO) 0.1 X10'3 (0-0.9); EOSINOPHILS % (AUTO) 1.5 % (0-6); HEMATOCRIT 40.4 % (35.0-45.0); HEMOGLOBIN 13.9 g/dl (12.0-16.0); LYMPHOCYTES # (AUTO) 1.8 X10'3 (1.1-4.8); LYMPHOCYTES % (AUTO) 26.2 % (21-51); MEAN CORPUSCULAR HEMOGLOBIN 28.1 PG (27.0-31.0); MEAN CORPUSCULAR HGB CONC 34.4 g/dL (33.0-36.5); MEAN CORPUSCULAR VOLUME 81.6 FL (78-98); MEAN PLATELET VOLUME 8.6 FL (7.4-10.4); MONOCYTES # (AUTO) 0.4 X10'3 (0-0.9); MONOCYTES % (AUTO) 5.2 % (2-12); NEUTROPHILS # (AUTO) 4.5 X10'3 (1.8-7.7); NEUTROPHILS % (AUTO) 66.4 % (42-75); PLATELET COUNT 262 X10'3 (140-440); RED BLOOD COUNT 4.95 X10'6 (4.20-5.60); RED CELL DISTRIBUTION WIDTH 13.6 % (11.5-14.5); WHITE BLOOD COUNT 6.8 X10'3 (4.5-11.0)
[2020-11-16 06:20] LABS: ALANINE AMINOTRANSFERASE 30 U/L (12-78); ALBUMIN 3.4 G/DL (3.4-5.0); ALKALINE PHOSPHATASE 116 IU/L (46-116); ANION GAP 2 (8-16); ASPARTATE AMINO TRANSFERASE 21 U/L (10-37); BILIRUBIN,TOTAL 0.4 MG/DL (0.1-1.0); BLOOD UREA NITROGEN 24 MG/DL (7-18); BUN/CREATININE RATIO 38.7 (6.6-38.0); CALCIUM 8.9 MG/DL (8.5-10.1); CHLORIDE 102 MMOL/L (99-107); CREATININE 0.62 MG/DL (0.40-0.90); GLUCOSE 280 MG/DL (70-104); MAGNESIUM 2.1 MG/DL (1.5-2.4); POTASSIUM 3.7 MMOL/L (3.5-5.1); SODIUM 137 MMOL/L (135-145); TOTAL PROTEIN 6.9 G/DL (6.4-8.2); eGFR > 90 ML/MIN
--- NOTE | 2020-11-16 06:41 | NUR ---
Problems reprioritized. Patient report given, questions answered & plan of care reviewed with BILLIE Felix.
[2020-11-16 07:00] VITALS: BP 146/97
[2020-11-16] MEDS: fluconazole 100mg tablet PO SCH (07:33)
[2020-11-16] MEDS: K and/or MAG REPLACEMENT MC SCH ×2 (07:33→20:00)
[2020-11-16] MEDS: FLUoxetine 20mg capsule PO SCH (07:33)
[2020-11-16] MEDS: aspirin 81mg tab.chew PO SCH (07:33)
[2020-11-16] MEDS: atorvastatin 20mg tablet PO SCH (07:33)
[2020-11-16] MEDS: HYDROchlorothiazide 25mg tablet PO SCH (07:34)
[2020-11-16] MEDS: docusate sod 100mg capsule PO SCH ×2 (07:43→20:00)
[2020-11-16] MEDS: lactobacillus rhamnosus 10,000 MMU CELLS/CAPSULE PO SCH ×2 (07:43→20:31)
[2020-11-16] MEDS: insulin Lispro (HumaLOG) vial - multi-dose SQ SCH ×2 (09:05→14:44)
[2020-11-16 11:00] VITALS: BP 153/91
[2020-11-16] MEDS: levoFLOXACIN 500mg tablet PO SCH (11:55)
--- NOTE | 2020-11-16 13:45 | NUR ---
Reassessment: Pt s/p f/u BSS today with ST recs to continue SB6 diet with thin liquids. Patient's PO intake slightly fluctuates however averages 75-100% with mostly 100% PO intake. Pt meeting estimated nutrient needs at this time and continues receiving double protein TID. LBM 11/16. No further nutrition intervention implemented at this time. Will continue to follow. Recommendations: 1) Continue SB6 CHO controlled diet with thin liquids per ST recs 2) Double eggs WB, double meat BIDLD for satiety per diet order 3) Routine bowel care 4) Scaled weights per rx Addendum: 11/16/20 at [address] Amended: Links added.
--- NOTE | 2020-11-16 18:15 | NUR ---
Problems reprioritized. Patient report given, questions answered & plan of care reviewed with BILLIE Rogers.
--- NOTE | 2020-11-16 18:30 | NUR ---
Patient in room MICHAELA 345. I have received report from FISH WISE and had the opportunity to ask questions and assume patient care.
[2020-11-16 20:00] VITALS: BP 139/94
[2020-11-16] MEDS: insulin glargine (Lantus) pen - multi-dose SQ SCH (20:48)
[2020-11-17] VITALS: BP 146/90
[2020-11-17 06:07] LABS: BASOPHILS # (AUTO) 0.1 X10'3 (0-0.2); BASOPHILS % (AUTO) 0.8 % (0-1); EOSINOPHILS # (AUTO) 0.1 X10'3 (0-0.9); EOSINOPHILS % (AUTO) 1.1 % (0-6); HEMATOCRIT 40.9 % (35.0-45.0); HEMOGLOBIN 13.8 g/dl (12.0-16.0); LYMPHOCYTES # (AUTO) 1.8 X10'3 (1.1-4.8); LYMPHOCYTES % (AUTO) 21.8 % (21-51); MEAN CORPUSCULAR HEMOGLOBIN 28.2 PG (27.0-31.0); MEAN CORPUSCULAR HGB CONC 33.6 g/dL (33.0-36.5); MEAN CORPUSCULAR VOLUME 83.8 FL (78-98); MEAN PLATELET VOLUME 8.5 FL (7.4-10.4); MONOCYTES # (AUTO) 0.6 X10'3 (0-0.9); NEUTROPHILS # (AUTO) 5.8 X10'3 (1.8-7.7); NEUTROPHILS % (AUTO) 69.3 % (42-75); PLATELET COUNT 280 X10'3 (140-440); RED BLOOD COUNT 4.88 X10'6 (4.20-5.60); RED CELL DISTRIBUTION WIDTH 13.8 % (11.5-14.5); WHITE BLOOD COUNT 8.4 X10'3 (4.5-11.0)
[2020-11-17 06:17] LABS: ALANINE AMINOTRANSFERASE 35 U/L (12-78); ALBUMIN 3.3 G/DL (3.4-5.0); ALBUMIN/GLOBULIN RATIO 0.9 (1.1-1.5); ALKALINE PHOSPHATASE 133 IU/L (46-116); ANION GAP 5 (8-16); ASPARTATE AMINO TRANSFERASE 16 U/L (10-37); BILIRUBIN,TOTAL 0.4 MG/DL (0.1-1.0); BLOOD UREA NITROGEN 30 MG/DL (7-18); BUN/CREATININE RATIO 44.8 (6.6-38.0); CALCIUM 8.6 MG/DL (8.5-10.1); CHLORIDE 101 MMOL/L (99-107); CREATININE 0.67 MG/DL (0.40-0.90); GLUCOSE 291 MG/DL (70-104); MAGNESIUM 1.8 MG/DL (1.5-2.4); POTASSIUM 4.2 MMOL/L (3.5-5.1); SODIUM 139 MMOL/L (135-145); TOTAL CARBON DIOXIDE 32.7 MMOL/L (24-32); eGFR > 90 ML/MIN
--- NOTE | 2020-11-17 06:30 | NUR ---
Problems reprioritized. Patient report given, questions answered & plan of care reviewed with FISH WISE.
[2020-11-17 07:00] VITALS: BP 140/88
[2020-11-17] MEDS: K and/or MAG REPLACEMENT MC SCH ×2 (08:00→20:00)
[2020-11-17] MEDS: docusate sod 100mg capsule PO SCH ×2 (08:00→20:00)
[2020-11-17] MEDS: lactobacillus rhamnosus 10,000 MMU CELLS/CAPSULE PO SCH ×2 (08:00→19:58)
[2020-11-17] MEDS: FLUoxetine 20mg capsule PO SCH (08:31)
[2020-11-17] MEDS: HYDROchlorothiazide 25mg tablet PO SCH (08:31)
[2020-11-17] MEDS: fluconazole 100mg tablet PO SCH (08:31)
[2020-11-17] MEDS: aspirin 81mg tab.chew PO SCH (08:31)
[2020-11-17] MEDS: atorvastatin 20mg tablet PO SCH (08:31)
[2020-11-17] MEDS: insulin Lispro (HumaLOG) vial - multi-dose SQ SCH ×3 (09:57→20:03)
[2020-11-17] MEDS: levoFLOXACIN 500mg tablet PO SCH (11:49)
[2020-11-17 12:19] VITALS: BP 146/89
--- NOTE | 2020-11-17 18:05 | NUR ---
Problems reprioritized. Patient report given, questions answered & plan of care reviewed with BILLIE Galeano.
--- NOTE | 2020-11-17 18:10 | NUR ---
Patient in room MICHAELA 345. I have received report from BILLIE Luna and had the opportunity to ask questions and assume patient care.
[2020-11-17 18:30] VITALS: BP 134/85
[2020-11-17] MEDS: HYDROcodone/acetaminophen 5mg/325mg tablet PO PRN (22:18)
[2020-11-17] MEDS: insulin glargine (Lantus) pen - multi-dose SQ SCH (22:32)
[2020-11-17 23:00] VITALS: BP 138/89
[2020-11-18] MEDS: HYDROcodone/acetaminophen 5mg/325mg tablet PO PRN ×3 (05:40→22:16)
--- NOTE | 2020-11-18 06:05 | NUR ---
Problems reprioritized. Patient report given, questions answered & plan of care reviewed with BILLIE Perez.
[2020-11-18 07:00] VITALS: BP 157/86
[2020-11-18] MEDS: K and/or MAG REPLACEMENT MC SCH ×2 (08:00→20:00)
[2020-11-18] MEDS: docusate sod 100mg capsule PO SCH ×2 (08:00→20:00)
[2020-11-18] MEDS: atorvastatin 20mg tablet PO SCH (08:54)
[2020-11-18] MEDS: aspirin 81mg tab.chew PO SCH (08:54)
[2020-11-18] MEDS: lactobacillus rhamnosus 10,000 MMU CELLS/CAPSULE PO SCH ×2 (08:54→19:08)
[2020-11-18] MEDS: FLUoxetine 20mg capsule PO SCH (08:55)
[2020-11-18] MEDS: HYDROchlorothiazide 25mg tablet PO SCH (08:55)
[2020-11-18] MEDS: insulin Lispro (HumaLOG) vial - multi-dose SQ SCH ×4 (09:54→22:23)
[2020-11-18] MEDS: fluconazole 100mg tablet PO SCH (10:22)
[2020-11-18 11:00] VITALS: BP 129/82
--- NOTE | 2020-11-18 14:22 | NUR ---
Pt's Levaquin dose was delayed due to having just eaten dairy. Went to give dose however pt just hd more dairy. Spoke with Pharmacist and was advised The med could be given 2 hours after instead of 4. Discussed with Pt need to refrain from consuming dairy until med is given.
[2020-11-18] MEDS: levoFLOXACIN 500mg tablet PO SCH (16:49)
--- NOTE | 2020-11-18 18:30 | NUR ---
Patient in room MICHAELA 345. I have received report from BILLIE Perez and had the opportunity to ask questions and assume patient care. Addendum: 11/18/20 at 2308 by Damon Matt RN Amended: Links added.
--- NOTE | 2020-11-18 18:50 | NUR ---
Problems reprioritized. Patient report given, questions answered & plan of care reviewed with BILLIE Higginbotham.
[2020-11-18 19:30] VITALS: BP 135/85
[2020-11-19 00:30] VITALS: BP 154/83
--- NOTE | 2020-11-19 00:30 | NUR ---
Pt is able to sit up in bed moves freq . able to care for self with some assistance. Addendum: 11/19/20 at 0223 by Damon Matt RN Amended: Links added.
[2020-11-19] MEDS: insulin glargine (Lantus) pen - multi-dose SQ SCH ×2 (00:36→22:08)
--- NOTE | 2020-11-19 06:15 | NUR ---
Problems reprioritized. Patient report given, questions answered & plan of care reviewed with BILLIE STACK. Addendum: 11/19/20 at 0636 by Damon Matt RN Amended: Links added.
--- NOTE | 2020-11-19 06:49 | NUR ---
Patient in room MICHAELA 345. I have received report from Simone WISE and had the opportunity to ask questions and assume patient care.
[2020-11-19 07:00] VITALS: BP 166/88
[2020-11-19 08:00] VITALS: BP 166/88
[2020-11-19] MEDS: docusate sod 100mg capsule PO SCH ×2 (08:00→19:34)
[2020-11-19] MEDS: K and/or MAG REPLACEMENT MC SCH ×2 (08:00→19:32)
[2020-11-19] MEDS: aspirin 81mg tab.chew PO SCH (08:50)
[2020-11-19] MEDS: lactobacillus rhamnosus 10,000 MMU CELLS/CAPSULE PO SCH ×2 (08:51→20:00)
[2020-11-19] MEDS: HYDROcodone/acetaminophen 5mg/325mg tablet PO PRN ×2 (08:51→22:12)
[2020-11-19] MEDS: HYDROchlorothiazide 25mg tablet PO SCH (08:51)
[2020-11-19] MEDS: FLUoxetine 20mg capsule PO SCH (08:52)
[2020-11-19] MEDS: atorvastatin 20mg tablet PO SCH (08:52)
[2020-11-19] MEDS: insulin Lispro (HumaLOG) vial - multi-dose SQ SCH ×3 (09:05→19:43)
--- NOTE | 2020-11-19 10:44 | NUR ---
patient medicated x1 for pain with effect. medds administered. patient appears stable report given to Melita WISE
--- NOTE | 2020-11-19 10:50 | NUR ---
Reviewed Love WISE's Physical assessment and agree with it.
[2020-11-19 11:00] VITALS: BP 157/88
--- NOTE | 2020-11-19 18:11 | NUR ---
Problems reprioritized. Patient report given, questions answered & plan of care reviewed with Alonzo WISE.
[2020-11-19 20:42] VITALS: BP 165/108
[2020-11-19 20:43] VITALS: BP 151/97
--- NOTE | 2020-11-19 20:46 | NUR ---
Vital signs at 2041 were from the wrong patient, please see VS at 204
[2020-11-20 00:05] VITALS: BP 157/94
--- NOTE | 2020-11-20 06:30 | NUR ---
Problems reprioritized. Patient report given, questions answered & plan of care reviewed with DANIEL. Addendum: 11/20/20 at 0653 by Priyank Yanez RN Amended: Links added.
--- NOTE | 2020-11-20 06:56 | NUR ---
Patient in room MICHAELA 345. I have received report from taz WISE and had the opportunity to ask questions and assume patient care.
--- NOTE | 2020-11-20 07:06 | NUR ---
Patient in room MICHAELA 345. I have received report from David WISE with Melita WISE and had the opportunity to ask questions and assume patient care.
[2020-11-20 07:29] VITALS: BP 172/99
[2020-11-20] MEDS: HYDROcodone/acetaminophen 5mg/325mg tablet PO PRN ×2 (07:40→23:00)
[2020-11-20] MEDS: atorvastatin 20mg tablet PO SCH (07:40)
[2020-11-20] MEDS: FLUoxetine 20mg capsule PO SCH (07:40)
[2020-11-20] MEDS: aspirin 81mg tab.chew PO SCH (07:40)
[2020-11-20] MEDS: lactobacillus rhamnosus 10,000 MMU CELLS/CAPSULE PO SCH ×2 (07:40→20:52)
[2020-11-20] MEDS: HYDROchlorothiazide 25mg tablet PO SCH (07:40)
[2020-11-20] MEDS: docusate sod 100mg capsule PO SCH ×2 (07:53→20:00)
[2020-11-20] MEDS: K and/or MAG REPLACEMENT MC SCH ×2 (08:22→20:00)
[2020-11-20] MEDS: insulin Lispro (HumaLOG) vial - multi-dose SQ SCH ×3 (09:37→20:51)
[2020-11-20 11:56] VITALS: BP 161/98
[2020-11-20] MEDS ORDERED: gabapentin 100mg capsule PO ONE (23:05)
[2020-11-20] MEDS: insulin glargine (Lantus) pen - multi-dose SQ SCH (23:07)
[2020-11-20 23:17] VITALS: BP 132/83
--- NOTE | 2020-11-21 00:05 | NUR ---
Student Medication Administration: For this medication-pass time frame, all medication were reviewed, dispensed, administered and documented per hospital policy by Edmund TROTTER [facility].
[2020-11-21 07:00] VITALS: BP 167/100
[2020-11-21] MEDS: docusate sod 100mg capsule PO SCH ×2 (07:38→20:00)
[2020-11-21] MEDS: HYDROcodone/acetaminophen 5mg/325mg tablet PO PRN ×3 (07:39→19:43)
[2020-11-21] MEDS: HYDROchlorothiazide 25mg tablet PO SCH (07:41)
[2020-11-21] MEDS: lactobacillus rhamnosus 10,000 MMU CELLS/CAPSULE PO SCH ×2 (07:41→19:43)
[2020-11-21] MEDS: aspirin 81mg tab.chew PO SCH (07:42)
[2020-11-21] MEDS: FLUoxetine 20mg capsule PO SCH (07:42)
[2020-11-21] MEDS: atorvastatin 20mg tablet PO SCH (07:43)
[2020-11-21] MEDS: K and/or MAG REPLACEMENT MC SCH ×2 (08:00→20:00)
[2020-11-21] MEDS: insulin Lispro (HumaLOG) vial - multi-dose SQ SCH ×4 (09:03→21:49)
[2020-11-21 10:32] VITALS: BP 153/100
[2020-11-21 17:24] VITALS: BP 167/100
--- NOTE | 2020-11-21 18:40 | NUR ---
Patient in room MICHAELA 345. I have received report from BILLIE SANCHEZ and had the opportunity to ask questions and assume patient care. Addendum: 11/22/20 at 0237 by Damon Matt RN Amended: Links added.
--- NOTE | 2020-11-21 18:49 | NUR ---
Problems reprioritized. Patient report given, questions answered & plan of care reviewed with Zuri WISE.
[2020-11-21 19:30] VITALS: BP 131/103
[2020-11-21 20:30] VITALS: BP 130/94
[2020-11-21] MEDS: insulin glargine (Lantus) pen - multi-dose SQ SCH (21:54)
[2020-11-22 00:30] VITALS: BP 160/96
[2020-11-22] MEDS: HYDROcodone/acetaminophen 5mg/325mg tablet PO PRN ×4 (00:53→21:28)
--- NOTE | 2020-11-22 06:33 | NUR ---
Problems reprioritized. Patient report given, questions answered & plan of care reviewed with BILLIE SUMMERS. Addendum: 11/22/20 at 0633 by Damon Matt RN Amended: Links added.
--- NOTE | 2020-11-22 06:44 | NUR ---
Patient in room MICHAELA 345. I have received report from Anahy WISE and had the opportunity to ask questions and assume patient care.
[2020-11-22 07:00] VITALS: BP 168/114
[2020-11-22] MEDS: lactobacillus rhamnosus 10,000 MMU CELLS/CAPSULE PO SCH ×2 (07:48→21:23)
[2020-11-22] MEDS: docusate sod 100mg capsule PO SCH ×2 (07:48→20:00)
[2020-11-22] MEDS: HYDROchlorothiazide 25mg tablet PO SCH (07:48)
[2020-11-22] MEDS: FLUoxetine 20mg capsule PO SCH (07:51)
[2020-11-22] MEDS: atorvastatin 20mg tablet PO SCH (07:51)
[2020-11-22] MEDS: aspirin 81mg tab.chew PO SCH (07:51)
[2020-11-22] MEDS: K and/or MAG REPLACEMENT MC SCH ×2 (07:55→20:00)
--- NOTE | 2020-11-22 07:55 | NUR ---
patient lab work not done since 11/17/2020 potassium 4.3 magnesium at 1.8 Addendum: 11/22/20 at 0759 by Phill Peterson - Student MERLINE Amended: Links added.
[2020-11-22] MEDS: insulin Lispro (HumaLOG) vial - multi-dose SQ SCH ×3 (08:42→21:20)
[2020-11-22 11:00] VITALS: BP 149/103
--- NOTE | 2020-11-22 14:42 | NUR ---
Patient's blood sugar around 12noon was 132 mg/dl. Patient refused the lunch tray served to her. Patient apparently ordered food from a rest[employer]ant. Patient listed on a piece of paper that she ate chicken, patt, cabbage, haider sour cream, avocado, (39 grams of carbs total) and chicken quesadilla (67grams of carbs). When I asked her "how did you come out with these numbers?" She replied to me "I searched it from the internet!" I discussed with her about dosing of insulin we do at the hospital that we dose the insulin based on her blood sugar reading and carbohydrates intake from the food tray we served to her from the hospital. I discussed this patient's non-compliance with diet order. I contacted dietitian Maddi on the phone, I discussed with her about the patient eating food from outside. Blood sugar of 132mg/dl was only covered with correctional dose at this time as I do not feel comfortable giving her insulin dose with an "estimated/guessed calculation of carbohydrate intake" that was based on internet search as the hospital's insulin protocol did not included outside food calculation. Dr. Martin notified about patient non-compliance eating outside food. PAGER ID: [phone] MESSAGE: Manpreet Abdul RN [phone]. RE: Alicia Melo. Patient has been receiving outside food. She was giving us calculated carb count that she based from internet search. I only covered her correctional dose at this time.
[2020-11-22 18:00] VITALS: BP 157/106
--- NOTE | 2020-11-22 18:46 | NUR ---
Patient in room MICHAELA 345. I have received report from BILLIE Abdul and had the opportunity to ask questions and assume patient care.
[2020-11-22] MEDS: insulin glargine (Lantus) pen - multi-dose SQ SCH (21:18)
[2020-11-23] VITALS: BP 152/94
[2020-11-23] MEDS: HYDROcodone/acetaminophen 5mg/325mg tablet PO PRN ×3 (04:58→13:21)
--- NOTE | 2020-11-23 06:44 | NUR ---
Patient in room MICHAELA 345. I have received report from Lizeth WISE and had the opportunity to ask questions and assume patient care.
--- NOTE | 2020-11-23 06:56 | NUR ---
Problems reprioritized. Patient report given, questions answered & plan of care reviewed with BILLIE Abdul.
[2020-11-23 07:00] VITALS: BP 168/90
[2020-11-23] MEDS: docusate sod 100mg capsule PO SCH (08:00)
[2020-11-23] MEDS: lactobacillus rhamnosus 10,000 MMU CELLS/CAPSULE PO SCH (09:14)
[2020-11-23] MEDS: atorvastatin 20mg tablet PO SCH (09:14)
[2020-11-23] MEDS: FLUoxetine 20mg capsule PO SCH (09:15)
[2020-11-23] MEDS: aspirin 81mg tab.chew PO SCH (09:15)
[2020-11-23] MEDS: HYDROchlorothiazide 25mg tablet PO SCH (09:15)
[2020-11-23] MEDS: insulin Lispro (HumaLOG) vial - multi-dose SQ SCH (09:24)
[2020-11-23 11:00] VITALS: BP 151/93
[2020-11-23] MEDS ORDERED: SYRI1DIS90 MC (12:17)
[2020-11-23] MEDS ORDERED: LANTUS SQ (12:17)
[2020-11-23] MEDS ORDERED: ASPI81TA53 PO (12:17)
[2020-11-23] MEDS ORDERED: INSU1KIT (12:17)
[2020-11-23] MEDS ORDERED: ATOR20TA66 PO (12:17)
[2020-11-23] MEDS ORDERED: FLUO-167 PO (12:17)
[2020-11-23] MEDS ORDERED: HYDR25TA4 PO (12:17)
[2020-11-23] MEDS ORDERED: INSU100V11 SQ (12:17)
[2020-11-23] MEDS ORDERED: HYDR-3964 PO (12:17)
--- NOTE | 2020-11-23 13:50 | NUR ---
Discharged patient home accompanied by her daughter. Discharge instructions given to patient, patient and daughter at bedside both verbalized understanding of all instructions given. Instructed patient to ensure she has all her belongings with her before leaving the hospital. New original written prescription for [place] given to patient, placed inside her discharge folder.
== END 2020-11-23 13:50 | disposition home health service (06) | DRG 62 ==
LOC: ER 12:29 → ED HOLD 15:42 → ORTHO 4S 11-07 16:24 → SUR 3N 11-13 12:40
PROVIDERS: ADMIT Surgery Surgical Critical Care; ATTEND Surgery Surgical Critical Care
PROC: B3251ZZ Computerized Tomography (CT Scan) of Bilateral Common Carotid Arteries using Low Osmolar Contrast (ICD-10-PCS; principal; 2020-11-06)
PROC: B32G1ZZ Computerized Tomography (CT Scan) of Bilateral Vertebral Arteries using Low Osmolar Contrast (ICD-10-PCS; 2020-11-06)
PROC: B32R1ZZ Computerized Tomography (CT Scan) of Intracranial Arteries using Low Osmolar Contrast (ICD-10-PCS; 2020-11-06)
PROC: B3281ZZ Computerized Tomography (CT Scan) of Bilateral Internal Carotid Arteries using Low Osmolar Contrast (ICD-10-PCS; 2020-11-06)
PROC: 3E03317 Introduction of Other Thrombolytic into Peripheral Vein, Percutaneous Approach (ICD-10-PCS; 2020-11-06)
DX: I63.9 Cerebral infarction, unspecified (principal); G81.94 Hemiplegia, unspecified affecting left nondominant side; N39.0 Urinary tract infection, site not specified; F32.9 Major depressive disorder, single episode, unspecified; I10 Essential (primary) hypertension; R29.810 Facial weakness; R21 Rash and other nonspecific skin eruption; E11.9 Type 2 diabetes mellitus without complications; G70.00 Myasthenia gravis without (acute) exacerbation; B96.20 Unspecified Escherichia coli [E. coli] as the cause of diseases classified elsewhere; Z91.040 Latex allergy status; Z91.19 Patient's noncompliance with other medical treatment and regimen
CPT/HCPCS: 36415; 70450; 70496; 70498; 70551; 71045; 80053; 80061; 80305; 81001; 82948; 83036; 83735; 84484; 85025; 85610; 85730; 87077; 87081; 87088; 87186; 92508; 92616; 93005; 93306; 96365; 97110; 97112; 97116; 97162; 97530; 97535; 99291; G0378; J1815; J2997; J3360; J7030; Q9967

== ENCOUNTER 2022-08-22 15:26 | Emergency (ER) | payer MEDICAID, OTHER ==
[~2022-08-22] VITALS: Ht 167.6 cm; Wt 106.0 kg
[~2022-08-22 15:26] MED LIST: ASPI81TA53 PO; ATOR20TA66 PO; FLUO-167 PO; HYDR-3964 PO; HYDR25TA4 PO; INSU100V11 SQ; INSU1KIT; LANTUS SQ
[2022-08-22 15:39] VITALS: BP 161/94
[2022-08-22] MEDS ORDERED: INSU200I SQ (16:08)
== END 2022-08-22 16:15 | disposition home or self-care (01) ==
LOC: ER 15:27
DX: E11.9 Type 2 diabetes mellitus without complications (principal); I10 Essential (primary) hypertension
CPT/HCPCS: 99281

== ENCOUNTER 2022-09-12 18:59 | Emergency (ER) | payer MEDICAID ==
[~2022-09-12] VITALS: Ht 167.6 cm; Wt 104.5 kg
[~2022-09-12 18:59] MED LIST changes: +INSU200I SQ
[2022-09-12 19:26] VITALS: BP 158/104
[2022-09-12] MEDS ORDERED: clindamycin 150mg capsule PO ONE (20:05)
[2022-09-12] MEDS ORDERED: CLIN-97 PO (20:13)
[2022-09-12] MEDS ORDERED: ALBU8HFA PO (20:13)
[2022-09-12] MEDS ORDERED: PRED20TA PO (20:13)
[2022-09-12] MEDS ORDERED: HYDROcodone/acetaminophen 10/325mg tab PO ONE (20:15)
== END 2022-09-12 20:24 | disposition home or self-care (01) ==
LOC: ER 18:59
DX: K04.7 Periapical abscess without sinus (principal); J45.909 Unspecified asthma, uncomplicated; K02.9 Dental caries, unspecified; I10 Essential (primary) hypertension; E11.9 Type 2 diabetes mellitus without complications; Z91.040 Latex allergy status; Z79.82 Long term (current) use of aspirin; Z79.2 Long term (current) use of antibiotics; Z79.4 Long term (current) use of insulin; Z79.899 Other long term (current) drug therapy
CPT/HCPCS: 99283

== ENCOUNTER 2023-03-06 17:00 | Emergency (ER) | payer SELFPAY ==
[~2023-03-06] VITALS: Ht 167.6 cm; Wt 98.6 kg
[~2023-03-06 17:00] MED LIST changes: +CLIN-97 PO; +PRED20TA PO
[2023-03-06 17:57] VITALS: BP 179/80; PULSE 88; TEMP 97.9; O2SAT 100
[2023-03-06] MEDS ORDERED: ketorolac trometh inj. 60 MG/2 ML VIAL IM ONE (18:15)
[2023-03-06] MEDS ORDERED: HYDROcodone/acetaminophen 10/325mg tab PO ONE (18:15)
[2023-03-06] MEDS ORDERED: IBUP-1984 PO (18:26)
[2023-03-06 18:31] VITALS: RESP 18
== END 2023-03-06 18:43 | disposition home or self-care (01) ==
LOC: ER 17:01
DX: M79.642 Pain in left hand (principal); M79.672 Pain in left foot; I10 Essential (primary) hypertension; J45.909 Unspecified asthma, uncomplicated; E11.9 Type 2 diabetes mellitus without complications; Z91.040 Latex allergy status; Z79.82 Long term (current) use of aspirin; Z79.4 Long term (current) use of insulin; Z79.899 Other long term (current) drug therapy; W18.39XA Other fall on same level, initial encounter; Y93.89 Activity, other specified; Y92.89 Other specified places as the place of occurrence of the external cause; Y99.8 Other external cause status
CPT/HCPCS: 73130; 73630; 99284; J1885; L4360

== ENCOUNTER 2023-03-20 17:31 | Emergency (ER) | payer SELFPAY ==
[~2023-03-20] VITALS: Ht 167.6 cm; Wt 99.1 kg
[~2023-03-20 17:31] MED LIST changes: +IBUP-1984 PO
[2023-03-20 17:32] VITALS: BP 137/94; PULSE 103; RESP 16; TEMP 99.8; O2SAT 99
[2023-03-20 19:34] LABS: BASOPHILS % (AUTO) 0.3 % (0-1); EOSINOPHILS # (AUTO) 0.1 X10'3 (0-0.9); EOSINOPHILS % (AUTO) 0.7 % (0-6); HEMATOCRIT 41.6 % (35.0-45.0); HEMOGLOBIN 14.6 g/dl (12.0-16.0); LYMPHOCYTES # (AUTO) 1.4 X10'3 (1.1-4.8); LYMPHOCYTES % (AUTO) 14.1 % (21-51); MEAN CORPUSCULAR HEMOGLOBIN 30.1 PG (27.0-31.0); MEAN CORPUSCULAR HGB CONC 35.2 g/dL (33.0-36.5); MEAN CORPUSCULAR VOLUME 85.6 FL (78-98); MEAN PLATELET VOLUME 9.7 FL (7.4-10.4); MONOCYTES # (AUTO) 0.5 X10'3 (0-0.9); MONOCYTES % (AUTO) 4.8 % (2-12); NEUTROPHILS # (AUTO) 7.9 X10'3 (1.8-7.7); NEUTROPHILS % (AUTO) 80.1 % (42-75); PLATELET COUNT 205 X10'3 (140-440); RED BLOOD COUNT 4.86 X10'6 (4.20-5.60); RED CELL DISTRIBUTION WIDTH 13.7 % (11.5-14.5); WHITE BLOOD COUNT 9.9 X10'3 (4.5-11.0)
[2023-03-20 19:51] LABS: ALANINE AMINOTRANSFERASE 28 U/L (12-78); ALBUMIN/GLOBULIN RATIO 1.1 (1.1-1.5); ALKALINE PHOSPHATASE 133 IU/L (46-116); ANION GAP 8 (8-16); ASPARTATE AMINO TRANSFERASE 7 U/L (10-37); BILIRUBIN,TOTAL 0.8 MG/DL (0.1-1.0); BLOOD UREA NITROGEN 14 MG/DL (7-18); BUN/CREATININE RATIO 21.9 (10.0-20.0); C-REACTIVE PROTEIN 0.19 MG/DL (0.0-0.5); CALCIUM 9.4 MG/DL (8.5-10.1); CHLORIDE 96 MMOL/L (99-107); CREATININE 0.64 MG/DL (0.40-0.90); POTASSIUM 3.9 MMOL/L (3.5-5.1); SODIUM 134 MMOL/L (135-145); TOTAL CARBON DIOXIDE 29.6 MMOL/L (24-32); TOTAL PROTEIN 7.7 G/DL (6.4-8.2); eCRCL 101 ML/MIN; eGFR > 90 ML/MIN
[2023-03-20 19:59] LABS: GLUCOSE 209 MG/DL (70-104)
[2023-03-21] MEDS ORDERED: HYDR25TA5 PO (15:07)
[2023-03-21] MEDS ORDERED: CLIN-97 PO (15:07)
== END 2023-03-20 22:20 | disposition left against medical advice (07) ==
LOC: ER 17:32
DX: M79.674 Pain in right toe(s) (principal); M79.89 Other specified soft tissue disorders
CPT/HCPCS: 36415; 73630; 80053; 85025; 86140; 99284

== ENCOUNTER 2023-03-21 14:20 | Emergency (ER) | payer SELFPAY ==
[~2023-03-21] VITALS: Ht 167.6 cm; Wt 99.1 kg
[2023-03-21 14:40] VITALS: BP 129/96; PULSE 96; RESP 16; O2SAT 99
[2023-03-21] MEDS ORDERED: CLIN-97 PO (15:07)
[2023-03-21] MEDS ORDERED: HYDR25TA5 PO (15:07)
[2023-03-21 15:17] VITALS: TEMP 97.5
== END 2023-03-21 15:20 | disposition home or self-care (01) ==
LOC: ER 14:20
DX: L03.032 Cellulitis of left toe (principal); Z91.040 Latex allergy status
CPT/HCPCS: 82948; 99283

== ENCOUNTER 2023-03-28 15:14 | Emergency (ER) | payer SELFPAY ==
[~2023-03-28] VITALS: Ht 167.6 cm; Wt 102.3 kg
[~2023-03-28 15:14] MED LIST changes: +HYDR25TA5 PO
[2023-03-28] MEDS ORDERED: CIPR500T5 PO (16:58)
[2023-03-28 17:13] VITALS: BP 138/80; PULSE 82; RESP 16; TEMP 97.8; O2SAT 96
== END 2023-03-28 17:17 | disposition home or self-care (01) ==
LOC: ER 15:14
DX: E11.621 Type 2 diabetes mellitus with foot ulcer (principal); L97.519 Non-pressure chronic ulcer of other part of right foot with unspecified severity; I10 Essential (primary) hypertension; J45.909 Unspecified asthma, uncomplicated; Z72.89 Other problems related to lifestyle; Z79.899 Other long term (current) drug therapy; Z79.4 Long term (current) use of insulin; Z91.040 Latex allergy status; Z79.82 Long term (current) use of aspirin; Z79.2 Long term (current) use of antibiotics
CPT/HCPCS: 73630; 82948; 87070; 87077; 87186; 99284; L3260; A6449

== ENCOUNTER 2023-05-12 13:42 | Emergency (ER) | payer MEDICARE ==
[~2023-05-12] VITALS: Ht 167.6 cm; Wt 97.3 kg
[~2023-05-12 13:42] MED LIST changes: -IBUP-1984 PO
[2023-05-12] MEDS ORDERED: INSU200I SQ (14:32)
[2023-05-12] MEDS ORDERED: AMOX-117 PO (14:33)
[2023-05-12] MEDS: ketorolac trometh inj. 60 MG/2 ML VIAL IM ONE (14:41)
[2023-05-12 14:48] VITALS: BP 121/89; PULSE 94; RESP 16; TEMP 97.9; O2SAT 94
== END 2023-05-12 14:50 | disposition home or self-care (01) ==
LOC: ER 13:43
DX: K04.7 Periapical abscess without sinus (principal); K02.9 Dental caries, unspecified; K08.89 Other specified disorders of teeth and supporting structures; I10 Essential (primary) hypertension; J45.909 Unspecified asthma, uncomplicated; E11.9 Type 2 diabetes mellitus without complications; Z91.040 Latex allergy status; Z79.82 Long term (current) use of aspirin; Z79.84 Long term (current) use of oral hypoglycemic drugs
CPT/HCPCS: 96372; 99283; J1885

== ENCOUNTER 2023-09-19 15:14 | Emergency (ER) | payer BC, MEDICAID ==
[~2023-09-19] VITALS: Ht 167.6 cm; Wt 99.0 kg
[2023-09-19] MEDS: LIDOcaine 1% W/epiNEPHrine 1:100,000 20ml vial SQ ONE (18:06)
[2023-09-19] MEDS ORDERED: SULF1TAB49 PO (18:28)
[2023-09-19] MEDS ORDERED: METO-395 PO (18:28)
[2023-09-19 18:38] VITALS: BP 136/93; PULSE 86; RESP 16; TEMP 98.7; O2SAT 98
== END 2023-09-19 18:40 | disposition home or self-care (01) ==
LOC: ER 15:14
DX: L02.412 Cutaneous abscess of left axilla (principal); Z91.09 Other allergy status, other than to drugs and biological substances; Z91.040 Latex allergy status; Z79.82 Long term (current) use of aspirin
CPT/HCPCS: 10060; 87070; 87077; 87186; 99283; A6449

== ENCOUNTER 2024-01-01 17:14 | Emergency (ER) | payer BC, MEDICAID ==
[~2024-01-01] VITALS: Ht 167.6 cm; Wt 97.3 kg
[~2024-01-01 17:14] MED LIST changes: +METO-395 PO
[2024-01-01 20:37] VITALS: BP 148/90; PULSE 90; RESP 16; TEMP 97.9; O2SAT 98
== END 2024-01-01 20:40 | disposition home or self-care (01) ==
LOC: ER 17:15
DX: S70.11XA Contusion of right thigh, initial encounter (principal); E11.9 Type 2 diabetes mellitus without complications; I10 Essential (primary) hypertension; J45.909 Unspecified asthma, uncomplicated; Z91.09 Other allergy status, other than to drugs and biological substances; Z91.040 Latex allergy status; Z79.82 Long term (current) use of aspirin; Z79.2 Long term (current) use of antibiotics; Z79.899 Other long term (current) drug therapy; Z79.4 Long term (current) use of insulin; W06.XXXA Fall from bed, initial encounter; Y93.89 Activity, other specified; Y92.89 Other specified places as the place of occurrence of the external cause; Y99.8 Other external cause status
CPT/HCPCS: 99284

== ENCOUNTER 2024-03-21 12:27 | Inpatient (IN) | payer BC, MEDICAID ==
[~2024-03-21] VITALS: Ht 167.6 cm; Wt 92.6 kg
[2024-03-21 13:42] LABS: BILIRUBIN,URINE NEGATIVE (Neg); CLARITY,URINE CLEAR (Clear); COLOR,URINE YELLOW (Yellow); GLUCOSE, URINE >=1000 mg/dl (Neg); KETONES,URINE NEGATIVE (Neg); LEUKOCYTE ESTERASE ,URINE NEGATIVE (Neg); NITRITES, URINE NEGATIVE (Neg); OCCULT BLOOD,URINE NEGATIVE (Neg); PH,URINE 5.5 (4.8-8.0); PROTEIN,URINE NEGATIVE (Neg); UROBILINOGEN,URINE 0.2 E.U/dL (0.2-1.0)
[2024-03-21 13:47] LABS: UA COLLECTION TYPE CLN CATCH MIDSTREAM
[2024-03-21 13:50] LABS: BACTERIA,URINE NONE SEEN /HPF (Neg); RBC,URINE NONE SEEN /HPF (0-2); SQUAMOUS EPITHELIAL CELL,UR FEW /LPF (FEW); WBC,URINE NONE SEEN /HPF (0-4)
[2024-03-21 15:58] LABS: ALANINE AMINOTRANSFERASE 29 U/L (12-78); ALBUMIN 4.3 G/DL (3.4-5.0); ALBUMIN/GLOBULIN RATIO 1.2 (1.1-1.5); ALKALINE PHOSPHATASE 103 IU/L (46-116); ANION GAP 9 (8-16); ASPARTATE AMINO TRANSFERASE 10 U/L (10-37); BILIRUBIN,TOTAL 0.7 MG/DL (0.1-1.0); BLOOD UREA NITROGEN 17 MG/DL (7-18); BUN/CREATININE RATIO 26.2 (10.0-20.0); CALCIUM 9.5 MG/DL (8.5-10.1); CHLORIDE 99 MMOL/L (99-107); CREATININE 0.65 MG/DL (0.40-0.90); GLUCOSE 167 MG/DL (70-104); POTASSIUM 3.6 MMOL/L (3.5-5.1); SODIUM 137 MMOL/L (135-145); TOTAL CARBON DIOXIDE 28.7 MMOL/L (24-32); TOTAL PROTEIN 7.8 G/DL (6.4-8.2); eCRCL 98 ML/MIN; eGFR > 90 ML/MIN
[2024-03-21 16:27] LABS: BASOPHILS # (AUTO) 0.1 X10'3 (0-0.2); BASOPHILS % (AUTO) 0.9 % (0-1); EOSINOPHILS # (AUTO) 0.1 X10'3 (0-0.9); EOSINOPHILS % (AUTO) 1.5 % (0-6); HEMATOCRIT 43.2 % (35.0-45.0); HEMOGLOBIN 15.4 g/dl (12.0-16.0); LYMPHOCYTES # (AUTO) 1.9 X10'3 (1.1-4.8); LYMPHOCYTES % (AUTO) 24.3 % (21-51); MEAN CORPUSCULAR HEMOGLOBIN 29.5 PG (27.0-31.0); MEAN CORPUSCULAR HGB CONC 35.6 g/dL (33.0-36.5); MEAN PLATELET VOLUME 9.4 FL (7.4-10.4); MONOCYTES # (AUTO) 0.4 X10'3 (0-0.9); MONOCYTES % (AUTO) 5.5 % (2-12); NEUTROPHILS # (AUTO) 5.3 X10'3 (1.8-7.7); NEUTROPHILS % (AUTO) 67.8 % (42-75); PLATELET COUNT 212 X10'3 (140-440); RED BLOOD COUNT 5.21 X10'6 (4.20-5.60); RED CELL DISTRIBUTION WIDTH 13.6 % (11.5-14.5); WHITE BLOOD COUNT 7.7 X10'3 (4.5-11.0)
[2024-03-21 17:47] LABS: URINE HCG NEGATIVE (NEG)
[2024-03-21] MEDS: dexamethasone sod phosphate 10mg/ml inj IV STA (19:43)
[2024-03-21] MEDS ORDERED: ALBU10.7 (20:08)
[2024-03-21] MEDS ORDERED: TIRZ10PE SQ (20:08)
[2024-03-21] MEDS ORDERED: ENAL-79 PO (20:08)
[2024-03-21] MEDS ORDERED: DULO60CA65 PO (20:08)
[2024-03-21] MEDS ORDERED: CELE-148 PO (20:08)
[2024-03-21] MEDS ORDERED: GABA-530 PO (20:08)
[2024-03-21] MEDS ORDERED: mag hydrox/Alum hydrox/simeth 30ml oral suspension PO PRN (21:50)
[2024-03-21] MEDS ORDERED: acetaminophen 325mg tablet PO PRN (21:50)
[2024-03-21] MEDS ORDERED: ondansetron/PF 4mg/2ml inj IV PRN (21:50)
[2024-03-21] MEDS ORDERED: magnesium sulf-water 4G/100mL 100 ML IV PRN (21:50)
[2024-03-21] MEDS ORDERED: magnesium Cl slow-release 64mg tablet PO PRN (21:50)
[2024-03-21] MEDS ORDERED: magnesium sulf-water 2g/50mL 50 ML IV PRN (21:50)
[2024-03-21] MEDS ORDERED: potassium Cl 40MEQ/1/2NS 520ml 520 ML IV PRN (21:50)
[2024-03-21] MEDS ORDERED: potassium Cl 20 mEq SR tablet PO PRN ×2 (21:50)
[2024-03-21 22:10] LABS: MAGNESIUM 2.1 MG/DL (1.5-2.4)
[2024-03-21 22:32] LABS: PHOSPHORUS 3.3 MG/DL (2.3-4.5)
[2024-03-21 22:33] LABS: HEMOGLOBIN A1C 8.4 % (4.5-6.2)
[2024-03-21] MEDS: normal saline 1000ml 1,000 ML IV SCH (22:50)
[2024-03-21] MEDS ORDERED: glucagon, human recombinant 1mg kit SUBCUT PRN (22:55)
[2024-03-21] MEDS ORDERED: DEXTROSE 15 GM of carb/4 tabs (each vial/BOTTLE has 4 tablets) PO PRN ×2 (22:55)
[2024-03-21] MEDS ORDERED: dextrose 50%-water 50ml dispensing syringe IV PRN ×2 (22:55)
[2024-03-22] VITALS (27 sets, daily range): BP systolic 128–170; BP diastolic 57–110; PULSE 82–106; RESP 13–21; TEMP 97.4–98.4; O2SAT 92–99
[2024-03-22] MEDS ORDERED: hydrALAZINE 20mg/ml inj. IV PRN (01:55)
[2024-03-22 06:25] LABS: ALANINE AMINOTRANSFERASE 24 U/L (12-78); ALBUMIN 3.7 G/DL (3.4-5.0); ALKALINE PHOSPHATASE 100 IU/L (46-116); ANION GAP 14 (8-16); ASPARTATE AMINO TRANSFERASE 12 U/L (10-37); BLOOD UREA NITROGEN 20 MG/DL (7-18); CALCIUM 9.5 MG/DL (8.5-10.1); CHLORIDE 100 MMOL/L (99-107); CREATININE 0.74 MG/DL (0.40-0.90); GLUCOSE 371 MG/DL (70-104); SODIUM 133 MMOL/L (135-145); TOTAL CARBON DIOXIDE 19.5 MMOL/L (24-32); TOTAL PROTEIN 7.4 G/DL (6.4-8.2); eCRCL 86 ML/MIN; eGFR 83 ML/MIN
[2024-03-22 06:30] LABS: POTASSIUM 4.5 MMOL/L (3.5-5.1)
[2024-03-22 06:31] LABS: BASOPHILS % (AUTO) 0.2 % (0-1); EOSINOPHILS % (AUTO) 0.1 % (0-6); HEMATOCRIT 44.5 % (35.0-45.0); HEMOGLOBIN 15.3 g/dl (12.0-16.0); LYMPHOCYTES # (AUTO) 0.7 X10'3 (1.1-4.8); LYMPHOCYTES % (AUTO) 7.9 % (21-51); MEAN CORPUSCULAR HEMOGLOBIN 29.2 PG (27.0-31.0); MEAN CORPUSCULAR HGB CONC 34.4 g/dL (33.0-36.5); MEAN CORPUSCULAR VOLUME 84.9 FL (78-98); MEAN PLATELET VOLUME 9.6 FL (7.4-10.4); MONOCYTES # (AUTO) 0.1 X10'3 (0-0.9); MONOCYTES % (AUTO) 1.5 % (2-12); NEUTROPHILS # (AUTO) 7.8 X10'3 (1.8-7.7); NEUTROPHILS % (AUTO) 90.3 % (42-75); PLATELET COUNT 220 X10'3 (140-440); RED BLOOD COUNT 5.24 X10'6 (4.20-5.60); RED CELL DISTRIBUTION WIDTH 13.6 % (11.5-14.5); WHITE BLOOD COUNT 8.6 X10'3 (4.5-11.0)
[2024-03-22] MEDS: gabapentin 100mg capsule PO SCH (07:37)
[2024-03-22] MEDS: duloxetine 30mg CAPSULE.DR PO SCH (07:37)
[2024-03-22] MEDS: INSULIN LISPRO 100 UNIT/ML INSULN.PEN MULTI-DOSE SQ SCH (07:41)
[2024-03-22] MEDS: K and/or MAG REPLACEMENT MC SCH (08:00)
[2024-03-22] MEDS ORDERED: dexamethasone sod phosphate 10mg/ml inj IV SCH (08:00)
[2024-03-22] MEDS ORDERED: methylPREDNISolone acetate 80mg/ml inj**IM only ONE (10:57)
[2024-03-22] MEDS ORDERED: BUPIVAcaine 2.5mg/ml inj 50ml vial (contains preservative) ONE (10:57)
[2024-03-22] MEDS ORDERED: LIDOcaine 0.5% (5mg/ml) 50ml vial ONE (10:57)
[2024-03-22] MEDS ORDERED: Thrombin (Bovine) 5,000 unit vial TP ONE (10:58)
[2024-03-22] MEDS ORDERED: proCHLORperazine 10 MG/2 ml inj IV PRN (12:05)
[2024-03-22] MEDS ORDERED: ondansetron/PF 4mg/2ml inj IV PRN ×2 (12:05→17:20)
[2024-03-22] MEDS ORDERED: meperidine/PF 25mg/ml syringe IV PRN ×3 (12:05)
[2024-03-22] MEDS: ringers solution, lacted 1,000 ML IV SCH ×2 (12:05→17:20)
[2024-03-22] MEDS ORDERED: morphine 2 MG/ML inj. syringe IV PRN (12:05)
[2024-03-22] MEDS ORDERED: gelatin sponge, absorbable (Gelfoam 100) sponge TP ONE (12:43)
[2024-03-22] MEDS ORDERED: fentaNYL /PF 50mcg/ml 5ml ampule ONE (12:52)
[2024-03-22] MEDS ORDERED: rocuronium 10mg/ml inj IV ONE (12:52)
[2024-03-22] MEDS ORDERED: midazolam 1 mg/ML 2ml injection ONE (12:52)
[2024-03-22] MEDS ORDERED: propofol inj 20 ML IV ONE (12:53)
[2024-03-22] MEDS ORDERED: sevoflurane 250ml liquid IH ONE (14:02)
[2024-03-22] MEDS ORDERED: ceFAZolin 1000mg inj ONE ×2 (14:09)
[2024-03-22] MEDS ORDERED: sugammadex 200mg/2ml injection IV ONE (16:59)
[2024-03-22] MEDS ORDERED: HYDROmorphone inj. 0.5 MG/0.5 ML DISP.SYRIN IV PRN (17:20)
[2024-03-22] MEDS: insulin regular, human 10 units/0.1 ml syringe SQ ONE (18:09)
[2024-03-22] MEDS: morphine 4 MG/ML inj SYRINge IV PRN (18:45)
[2024-03-22] MEDS: HYDROcodone/acetaminophen 10/325mg tab PO PRN (20:56)
[2024-03-22] MEDS: insulin glargine (Lantus) pen - multi-dose SQ SCH (21:06)
[2024-03-23 00:52] VITALS: BP 137/78; PULSE 101; RESP 16; O2SAT 93
[2024-03-23] MEDS: morphine 2 MG/ML inj. syringe IV PRN (01:39)
[2024-03-23] MEDS: ceFAZolin 2gm in dextrose, iso 50 ML IV SCH (01:41)
[2024-03-23 02:00] VITALS: BP 128/66; PULSE 101; RESP 16; TEMP 98.3; O2SAT 91
[2024-03-23 06:00] VITALS: BP 137/83; PULSE 109; RESP 16; TEMP 97.7; O2SAT 95
[2024-03-23] MEDS: HYDROmorphone inj. 0.5 MG/0.5 ML DISP.SYRIN IV PRN (06:12)
[2024-03-23 06:40] LABS: BASOPHILS % (AUTO) 0.2 % (0-1); EOSINOPHILS % (AUTO) 0.3 % (0-6); HEMATOCRIT 37.6 % (35.0-45.0); HEMOGLOBIN 13.3 g/dl (12.0-16.0); LYMPHOCYTES # (AUTO) 1.4 X10'3 (1.1-4.8); LYMPHOCYTES % (AUTO) 12.4 % (21-51); MEAN CORPUSCULAR HEMOGLOBIN 29.9 PG (27.0-31.0); MEAN CORPUSCULAR HGB CONC 35.4 g/dL (33.0-36.5); MEAN CORPUSCULAR VOLUME 84.4 FL (78-98); MEAN PLATELET VOLUME 9.3 FL (7.4-10.4); MONOCYTES # (AUTO) 0.7 X10'3 (0-0.9); MONOCYTES % (AUTO) 6.2 % (2-12); NEUTROPHILS # (AUTO) 8.8 X10'3 (1.8-7.7); NEUTROPHILS % (AUTO) 80.9 % (42-75); PLATELET COUNT 170 X10'3 (140-440); RED BLOOD COUNT 4.45 X10'6 (4.20-5.60); RED CELL DISTRIBUTION WIDTH 13.3 % (11.5-14.5); WHITE BLOOD COUNT 10.9 X10'3 (4.5-11.0)
[2024-03-23 07:00] LABS: ALANINE AMINOTRANSFERASE 21 U/L (12-78); ALBUMIN 3.5 G/DL (3.4-5.0); ALBUMIN/GLOBULIN RATIO 1.2 (1.1-1.5); ALKALINE PHOSPHATASE 77 IU/L (46-116); ANION GAP 10 (8-16); ASPARTATE AMINO TRANSFERASE 10 U/L (10-37); BLOOD UREA NITROGEN 19 MG/DL (7-18); BUN/CREATININE RATIO 27.1 (10.0-20.0); CALCIUM 8.7 MG/DL (8.5-10.1); CHLORIDE 100 MMOL/L (99-107); GLUCOSE 311 MG/DL (70-104); SODIUM 136 MMOL/L (135-145); TOTAL CARBON DIOXIDE 26.2 MMOL/L (24-32); TOTAL PROTEIN 6.5 G/DL (6.4-8.2); eCRCL 91 ML/MIN; eGFR 89 ML/MIN
[2024-03-23] MEDS: dexamethasone sod phosphate 4mg/ml inj. IV SCH (07:22)
[2024-03-23] MEDS: docusate sod 100mg capsule PO SCH (07:23)
[2024-03-23 10:00] VITALS: BP 133/78; PULSE 100; RESP 16; TEMP 98.6; O2SAT 95
[2024-03-23] MEDS: diazepam inj 5 MG/ML inj. IV PRN (15:02)
[2024-03-23] MEDS: LIDOcaine 2% Viscous 15ml cup MM PRN (15:02)
[2024-03-23 18:00] VITALS: BP 145/76; PULSE 96; RESP 16; TEMP 98.7; O2SAT 100
[2024-03-23] MEDS: nystatin 15 GM powder TP SCH (20:20)
[2024-03-23] MEDS: duloxetine 30mg CAPSULE.DR PO SCH (20:32)
[2024-03-23] MEDS: INSULIN LISPRO 100 UNIT/ML INSULN.PEN MULTI-DOSE SQ SCH (21:07)
[2024-03-23] MEDS: insulin glargine (Lantus) pen - multi-dose SQ SCH (21:07)
[2024-03-23 22:00] VITALS: BP 152/85; PULSE 76; RESP 16; TEMP 99.9; O2SAT 96
[2024-03-24 05:34] LABS: BASOPHILS % (AUTO) 0.2 % (0-1); EOSINOPHILS % (AUTO) 0.1 % (0-6); HEMATOCRIT 37.5 % (35.0-45.0); LYMPHOCYTES # (AUTO) 1.5 X10'3 (1.1-4.8); LYMPHOCYTES % (AUTO) 17.2 % (21-51); MEAN CORPUSCULAR HEMOGLOBIN 29.4 PG (27.0-31.0); MEAN CORPUSCULAR HGB CONC 34.7 g/dL (33.0-36.5); MEAN CORPUSCULAR VOLUME 84.7 FL (78-98); MEAN PLATELET VOLUME 9.1 FL (7.4-10.4); MONOCYTES # (AUTO) 0.6 X10'3 (0-0.9); MONOCYTES % (AUTO) 7.1 % (2-12); NEUTROPHILS # (AUTO) 6.7 X10'3 (1.8-7.7); NEUTROPHILS % (AUTO) 75.4 % (42-75); PLATELET COUNT 173 X10'3 (140-440); RED BLOOD COUNT 4.42 X10'6 (4.20-5.60); RED CELL DISTRIBUTION WIDTH 13.4 % (11.5-14.5); WHITE BLOOD COUNT 8.9 X10'3 (4.5-11.0)
[2024-03-24 05:52] LABS: ALANINE AMINOTRANSFERASE 18 U/L (12-78); ALBUMIN 3.2 G/DL (3.4-5.0); ALBUMIN/GLOBULIN RATIO 0.8 (1.1-1.5); ALKALINE PHOSPHATASE 81 IU/L (46-116); ANION GAP 7 (8-16); ASPARTATE AMINO TRANSFERASE 14 U/L (10-37); BILIRUBIN,TOTAL 0.9 MG/DL (0.1-1.0); BLOOD UREA NITROGEN 22 MG/DL (7-18); BUN/CREATININE RATIO 35.5 (10.0-20.0); CALCIUM 8.8 MG/DL (8.5-10.1); CHLORIDE 97 MMOL/L (99-107); CREATININE 0.62 MG/DL (0.40-0.90); GLUCOSE 246 MG/DL (70-104); POTASSIUM 4.2 MMOL/L (3.5-5.1); SODIUM 135 MMOL/L (135-145); TOTAL CARBON DIOXIDE 31.2 MMOL/L (24-32); eCRCL 103 ML/MIN; eGFR > 90 ML/MIN
[2024-03-24 06:00] VITALS: BP 144/94; PULSE 92; RESP 17; TEMP 99; O2SAT 97
[2024-03-24] MEDS: atorvastatin 20mg tablet PO SCH (07:39)
[2024-03-24] MEDS: metoprolol succinate 25mg (24-HOUR) SR. Tablet PO SCH (07:39)
[2024-03-24] MEDS: INSULIN LISPRO 100 UNIT/ML INSULN.PEN MULTI-DOSE SQ SCH (07:51)
[2024-03-24] MEDS ORDERED: duloxetine 30mg CAPSULE.DR PO SCH (08:00)
[2024-03-24 10:00] VITALS: BP 106/66; PULSE 86; RESP 17; TEMP 98.3; O2SAT 95
[2024-03-24] MEDS: magnesium hydroxide 30ml (MOM) UD suspension PO PRN (14:12)
[2024-03-24 18:00] VITALS: BP 145/88; PULSE 92; RESP 17; TEMP 96.8; O2SAT 96
[2024-03-24 22:00] VITALS: BP 152/91; PULSE 89; RESP 13; TEMP 97.1; O2SAT 98
[2024-03-25] VITALS (8 sets, daily range): BP systolic 132–153; BP diastolic 74–96; PULSE 70–77; RESP 10–17; TEMP 97.6–98.2; O2SAT 91–99
[2024-03-25 06:57] LABS: ALANINE AMINOTRANSFERASE 17 U/L (12-78); ALBUMIN 3.1 G/DL (3.4-5.0); ALBUMIN/GLOBULIN RATIO 0.8 (1.1-1.5); ALKALINE PHOSPHATASE 77 IU/L (46-116); ANION GAP 6 (8-16); ASPARTATE AMINO TRANSFERASE 12 U/L (10-37); BILIRUBIN,TOTAL 0.8 MG/DL (0.1-1.0); BLOOD UREA NITROGEN 25 MG/DL (7-18); BUN/CREATININE RATIO 36.2 (10.0-20.0); CALCIUM 9.1 MG/DL (8.5-10.1); CHLORIDE 98 MMOL/L (99-107); CREATININE 0.69 MG/DL (0.40-0.90); GLUCOSE 226 MG/DL (70-104); POTASSIUM 4.2 MMOL/L (3.5-5.1); SODIUM 134 MMOL/L (135-145); TOTAL CARBON DIOXIDE 29.8 MMOL/L (24-32); TOTAL PROTEIN 6.8 G/DL (6.4-8.2); eCRCL 92 ML/MIN; eGFR 90 ML/MIN
[2024-03-25 07:13] LABS: BASOPHILS % (AUTO) 0.3 % (0-1); EOSINOPHILS % (AUTO) 0.3 % (0-6); HEMATOCRIT 35.4 % (35.0-45.0); HEMOGLOBIN 12.3 g/dl (12.0-16.0); LYMPHOCYTES # (AUTO) 1.8 X10'3 (1.1-4.8); LYMPHOCYTES % (AUTO) 21.3 % (21-51); MEAN CORPUSCULAR HEMOGLOBIN 29.3 PG (27.0-31.0); MEAN CORPUSCULAR HGB CONC 34.7 g/dL (33.0-36.5); MEAN CORPUSCULAR VOLUME 84.5 FL (78-98); MEAN PLATELET VOLUME 9.4 FL (7.4-10.4); MONOCYTES # (AUTO) 0.5 X10'3 (0-0.9); MONOCYTES % (AUTO) 6.1 % (2-12); NEUTROPHILS # (AUTO) 6.1 X10'3 (1.8-7.7); PLATELET COUNT 177 X10'3 (140-440); RED BLOOD COUNT 4.19 X10'6 (4.20-5.60); RED CELL DISTRIBUTION WIDTH 13.1 % (11.5-14.5); WHITE BLOOD COUNT 8.5 X10'3 (4.5-11.0)
[2024-03-25] MEDS: JUVEN Smoothie Arginine/Glut./Ca2+Bmb (Juven 19.3pkt) 240ml cup PO SCH (12:30)
[2024-03-26] VITALS (7 sets, daily range): BP systolic 110–156; BP diastolic 61–96; PULSE 65–71; RESP 16–18; TEMP 97.9–98.1; O2SAT 95–99
[2024-03-26 07:27] LABS: BASOPHILS % (AUTO) 0.3 % (0-1); EOSINOPHILS % (AUTO) 0.6 % (0-6); HEMATOCRIT 37.5 % (35.0-45.0); HEMOGLOBIN 13.1 g/dl (12.0-16.0); LYMPHOCYTES # (AUTO) 1.5 X10'3 (1.1-4.8); LYMPHOCYTES % (AUTO) 20.1 % (21-51); MEAN CORPUSCULAR HEMOGLOBIN 29.4 PG (27.0-31.0); MEAN CORPUSCULAR HGB CONC 34.9 g/dL (33.0-36.5); MEAN CORPUSCULAR VOLUME 84.3 FL (78-98); MEAN PLATELET VOLUME 9.1 FL (7.4-10.4); MONOCYTES # (AUTO) 0.4 X10'3 (0-0.9); MONOCYTES % (AUTO) 5.8 % (2-12); NEUTROPHILS # (AUTO) 5.6 X10'3 (1.8-7.7); NEUTROPHILS % (AUTO) 73.2 % (42-75); PLATELET COUNT 220 X10'3 (140-440); RED BLOOD COUNT 4.45 X10'6 (4.20-5.60); RED CELL DISTRIBUTION WIDTH 13.3 % (11.5-14.5); WHITE BLOOD COUNT 7.6 X10'3 (4.5-11.0)
[2024-03-26 07:52] LABS: ALANINE AMINOTRANSFERASE 18 U/L (12-78); ALBUMIN 3.2 G/DL (3.4-5.0); ALBUMIN/GLOBULIN RATIO 0.8 (1.1-1.5); ALKALINE PHOSPHATASE 82 IU/L (46-116); ANION GAP 6 (8-16); ASPARTATE AMINO TRANSFERASE 12 U/L (10-37); BILIRUBIN,TOTAL 0.6 MG/DL (0.1-1.0); BLOOD UREA NITROGEN 27 MG/DL (7-18); BUN/CREATININE RATIO 43.5 (10.0-20.0); CALCIUM 9.1 MG/DL (8.5-10.1); CHLORIDE 99 MMOL/L (99-107); CREATININE 0.62 MG/DL (0.40-0.90); GLUCOSE 239 MG/DL (70-104); POTASSIUM 4.3 MMOL/L (3.5-5.1); SODIUM 135 MMOL/L (135-145); eCRCL 103 ML/MIN; eGFR > 90 ML/MIN
[2024-03-26] MEDS: insulin Lispro (HumaLOG) vial - multi-dose SQ ONE (23:27)
[2024-03-27] VITALS (7 sets, daily range): BP systolic 125–134; BP diastolic 73–87; PULSE 70–95; RESP 16–19; TEMP 96.4–98.1; O2SAT 96–100
[2024-03-27] MEDS: INSULIN LISPRO 100 UNIT/ML INSULN.PEN MULTI-DOSE SQ SCH (07:39)
[2024-03-27] MEDS: ringers solution, lacted 1,000 ML IV ONE (19:58)
[2024-03-27] MEDS: insulin regular, human 10 units/0.1 ml syringe SQ ONE (20:56)
[2024-03-27] MEDS: insulin glargine (Lantus) pen - multi-dose SQ SCH (22:02)
[2024-03-28 00:25] VITALS: RESP 18
[2024-03-28 03:49] VITALS: O2SAT 98
[2024-03-28 06:00] VITALS: BP 155/89; PULSE 67; RESP 15; TEMP 96.9; O2SAT 96; O2SAT 97
[2024-03-28 10:00] VITALS: BP 135/77; PULSE 70; RESP 11; TEMP 98.5; O2SAT 97
[2024-03-28] MEDS ORDERED: OXYC10TA47 PO (11:58)
[2024-03-28] MEDS ORDERED: CYCL-1 PO (12:33)
== END 2024-03-28 16:30 | disposition home or self-care (01) | DRG 519 ==
LOC: ER 12:28 → ED HOLD 21:51 → EDBEDREQTM 23:35 → EDBEDREQ 23:35 → ORTHO 4S 23:44 → UNDODISIN 03-26 13:45
PROVIDERS: ADMIT Surgery; ATTEND Family Medicine
PROC: 00NY0ZZ Release Lumbar Spinal Cord, Open Approach (ICD-10-PCS; principal; 2024-03-26)
DX: M48.062 Spinal stenosis, lumbar region with neurogenic claudication (principal); G83.4 Cauda equina syndrome; I69.354 Hemiplegia and hemiparesis following cerebral infarction affecting left non-dominant side; E11.40 Type 2 diabetes mellitus with diabetic neuropathy, unspecified; E78.5 Hyperlipidemia, unspecified; M51.360 Other intervertebral disc degeneration, lumbar region with discogenic back pain only; I10 Essential (primary) hypertension; I25.10 Atherosclerotic heart disease of native coronary artery without angina pectoris; J45.909 Unspecified asthma, uncomplicated; M47.26 Other spondylosis with radiculopathy, lumbar region; M51.16 Intervertebral disc disorders with radiculopathy, lumbar region; Z79.4 Long term (current) use of insulin; Z79.82 Long term (current) use of aspirin; Z91.040 Latex allergy status; Z91.048 Other nonmedicinal substance allergy status
CPT/HCPCS: 36415; 72100; 72131; 72146; 72148; 76000; 80053; 81001; 81025; 82948; 83036; 83735; 84100; 85025; 87081; 93306; 96374; 97110; 97116; 97161; 97530; 99285; A4215; A4355; A4618; A6213; A6258; A6402; A6449; A7000; G0378; J0690; J1010; J1100; J1171; J1815; J1940; J2250; J2270; J2704; J3010; J3360; J3490; J7030; J7050; J7120